=== PATIENT | male | born 1940 | race African-American/Black ===

== ENCOUNTER 2017-11-06 19:39 | Inpatient (IN) | payer OTHER ==
[~2017-11-06] VITALS: Ht 185.4 cm; Wt 63.2 kg
--- NOTE | ~2017-11-06 | EKG ---
[address] [address] ELECTROCARDIOGRAM REPORT Name: BABS RAO Room #: 355-P ADM IN M.R.#: [id number] Admission: 11/06/17 Attend Phys: Osbaldo Bhakta Discharge: Date of : 40 Report #: [id number] THIS REPORT FOR: //name// [facility] [place] [place] ED Test Date: 2017-11-06 Test Time: 20:24:20 Pat Name: BABS RAO Department: Room: Gender: M Electric Switch Repairer: Melissa CALLAHAN : 1940 Requested By: Danielle Carney Order Number: [id number] MD: Lv Andre Measurements Intervals [place] Rate: 86 P: 72 IN: 152 QRS: 78 QRSD: 90 T: 48 QT: 381 QTc: 456 Interpretive Statements Sinus rhythm Probable left atrial enlargement Minimal ST elevation, anterior leads Compared to ECG 05/13/2016 07:22:58 ST (T wave) deviation now present Electronically Signed On 11-08-2017 8:05:41 CDT by Lv Andre [email or web address] <ELECTRONICALLY SIGNED> By: Lv Andre MD 11/08/17804 23 23 Lv Andre MD /[facility]
--- NOTE | ~2017-11-06 | HC ---
[facility] [place] [address] CONSULTATION Name: BABS RAO Room #: 355-P ADM IN M.R.#: [id number] Admission: 11/06/17 Attend Phys: Osbaldo Bhakta Discharge: Date of : 40 Report #: [id number] THIS REPORT FOR: //name// CC: Osbaldo Gillette MD DATE OF SERVICE: 11/07/2017 HISTORY OF PRESENT ILLNESS: The patient is a 77-year-old male who is admitted with abdominal pain, nausea, vomiting as well as some diarrhea. Apparently, he has been having difficulty with urination and a bladder scan showed greater than 900 mL. A Caraballo catheter was placed and 2000 mL of urine was immediately drained. Reason for GI consultation is CT scan of the abdomen and pelvis. On admission yesterday showed marked distention of the rectum measuring 7.6 x 8.8 cm. Fecal impaction cannot be excluded. Again, the patient has had some diarrhea recently, but he also has a history of intermittent constipation apparently. He does have a history of colon cancer, status post right hemicolectomy. Dr. Everett, my partner did the last colonoscopy on the patient in September of 2015. The anastomosis in the right colon was well healed and widely patent. He had multiple diverticula in the sigmoid colon, but otherwise was negative. He denies any blood in his stools. His weight has been fairly stable. He is feeling better after bladder decompression. Urology has been consulted and has evaluated the patient as well. He denies any nausea or vomiting currently. No chest pain or shortness of breath. No fevers or chills currently. PAST MEDICAL HISTORY: Colon cancer, status post right hemicolectomy, history of diverticulosis, possible history of constipation, prostate mass and enlargement, bilateral hydronephrosis, history of COPD, congestive heart failure, hypertension, hypothyroidism, history of glaucoma, atrial fibrillation, previous hernia repair. ALLERGIES: ASPIRIN AND CODEINE. MEDICATIONS ON ADMISSION: ProAir, latanoprost ophthalmic drops, lisinopril, potassium chloride, Lasix, Synthroid, MiraLax p.r.n. for constipation, Advair inhaler. REVIEW OF SYSTEMS: As per HPI. FAMILY HISTORY: Positive for cancers. SOCIAL HISTORY: Denies any tobacco or alcohol use. [facility] [address] [place] [address] CONSULTATION Name: MAIRABABS Saurabh Room #: 355-P [facility] IN .R.#: [id number] Admission: 11/06/17 Attend Phys: Osbaldo Bhakta Discharge: Date of : 40 Report #: [id number] PHYSICAL EXAMINATION: VITAL SIGNS: Temperature is 98.0, pulse 73, blood pressure 106/67, respiratory rate is 18. GENERAL: He is alert and oriented x 3, in no acute distress. HEENT: Sclerae nonicteric. Oropharynx clear. NECK: Supple, without lymphadenopathy. CARDIOVASCULAR: Regular rate and rhythm. CHEST: Clear to auscultation bilaterally. ABDOMEN: Soft. He is mildly distended in the pelvis: Nontender. Positive bowel sounds. He has a Caraballo catheter in place. EXTREMITIES: No cyanosis, clubbing or edema. RECTAL: I performed a rectal exam on the patient in the room and he had an obvious fecal impaction. I digitally removed a large amount of stool today without difficulty. The patient is feeling better at this time. LABORATORY DATA: Sodium 139, potassium 4.0, chloride 103, bicarbonate 29, BUN 19, creatinine 1.6, glucose 116, AST 35, lipase 93, total bilirubin 0.9, alkaline phosphatase is 82, ALT is 37. Troponin less than 0.04. Lactic acid level is 0.8. WBC 16.3, hemoglobin 11.5, platelet count is 500. PSA is 3.8. ASSESSMENT AND PLAN: Fecal impaction, status post manual disimpaction at the bedside today. Large amount of stool was removed. The patient apparently was given mag citrate this morning. He has not had a bowel movement. We will see if he is able to have bowel movement after disimpaction. He is feeling better at this time. If no bowel movement within the next 24 hours, consider enema as well. We will continue to monitor the patient closely. Thank you for allowing me to participate in his care. <ELECTRONICALLY SIGNED> By: Maynor Valdez MD 11/08/17 1445 1425 2124 Maynor Valdez MD /nt
[~2017-11-06 19:39] MED LIST: ADVAIR 100-501 EACH INH; ADVAIR HFA115 MCG/21 INH; ALLOPURINOL 30300 M1 PO; CARAFATE 1 GM TA1 GM PO; CARVEDILOL3.125 MG PO; FUROSEMIDE 80 M80 M1 PO; K-DUR 20 MEQ T20 MEQ PO; LATANOPROST2.5 ML OPHTHALMIC; LAXATIVE PEG 3317 GM PO; LAXATIVE PEG 3510 GM PO; LEVOTHYROXIN0.025 MG PO; LISINOPRIL5 MG PO; MAXITROL EYE DRO5 ML OPHTHALMIC; METOPROLOL SUCC25 M1 PO; MINIPRIN81 MG PO; PACERONE 200 M200 M1 PO; PROAIR HFA8.5 GM INH
[2017-11-06 19:48] VITALS: BP 136/92
[2017-11-06 19:59] LABS: URINE BILIRUBIN NEGATIVE (Negative); URINE BLOOD TRACE (Negative); URINE CLARITY CLEAR; URINE COLOR YELLOW; URINE GLUCOSE-RANDOM* NEGATIVE (Negative); URINE KETONES NEGATIVE (Negative); URINE NITRITE-REFLEX NEGATIVE (Negative); URINE PROTEIN (DIPSTICK) NEGATIVE (Negative); URINE UROBILINOGEN 0.2 E.U./dl (0.2-1.0)
[2017-11-06 20:00] LABS: URINE LEUKOCYTES-REFLEX 1+ (Negative)
[2017-11-06 20:10] LABS: BACTERIA-REFLEX 1-9 Few /HPF (None Seen); CASTS None Seen /LPF (None Seen); CRYSTALS None Seen /LPF (None Seen); RENAL EPITHELIAL CELLS 0-3 Few /LPF (None Seen); SQUAMOUS None Seen /LPF (0-3); URINE RBC 3-10 Few /HPF (0-2); URINE WBC-REFLEX 6-15 Few /HPF (0-5)
[2017-11-06 20:11] LABS: WBC CLUMPS Few (None Seen)
[2017-11-06 20:17] LABS: HEMOGLOBIN 12.9 gm/dL (14.0-18.0); MCH 28.8 pg (26.0-34.0); MCV 87.4 fL (80.0-100.0); PLATELET COUNT 541 thou/uL (150-400); RBC 4.47 mil/uL (4.50-6.00); RDW 13.7 % (10.5-14.5); WBC 20.1 thou/uL (4.0-11.0)
[2017-11-06 20:24] LABS: ANION GAP 10 mmol/L (7-16); BUN 19 mg/dL (7-18); CALCIUM 9.2 mg/dL (8.5-10.1); CHLORIDE 100 mmol/L (98-107); CO2 26 mmol/L (21-32); CREATININE 1.8 mg/dL (0.7-1.3); GLUCOSE 155 mg/dL (74-106); POTASSIUM 3.9 mmol/L (3.5-5.1); SODIUM 136 mmol/L (136-145)
[2017-11-06 20:33] LABS: ALBUMIN 3.9 g/dL (3.4-5.0); LIPASE 93 U/L (73-393); SGOT 35 U/L (15-37); SGPT 37 U/L (30-65); TOTAL BILIRUBIN 0.9 mg/dL (<0.1-1.0); TOTAL PROTEIN 7.5 g/dL (6.4-8.2); TROPONIN-I < 0.04 ng/mL (<0.06)
[2017-11-06 20:49] LABS: ABSOLUTE NEUTROPHILS 19.5 thou/uL (1.4-8.2); PLATELET ESTIMATE INCREASED
[2017-11-06 22:02] VITALS: BP 141/78
[2017-11-06 22:24] VITALS: BP 139/77
[2017-11-06 22:40] VITALS: BP 146/86
[2017-11-07] MEDS ORDERED: SYNTHROID50 MCG PO (00:27)
[2017-11-07 03:45] VITALS: BP 110/64
[2017-11-07 05:26] LABS: HEMOGLOBIN 11.5 gm/dL (14.0-18.0); MCH 29.1 pg (26.0-34.0); MCV 88.3 fL (80.0-100.0); RBC 3.96 mil/uL (4.50-6.00); RDW 13.8 % (10.5-14.5); WBC 16.3 thou/uL (4.0-11.0)
[2017-11-07 05:42] LABS: CALCIUM 8.8 mg/dL (8.5-10.1); CREATININE 1.6 mg/dL (0.7-1.3)
[2017-11-07 07:33] VITALS: BP 114/69
[2017-11-07 11:30] VITALS: BP 106/67
[2017-11-07 13:10] LABS: GLYCOHEMOGLOBIN (HGB A1C) 5.8 % (4.8-5.6)
[2017-11-07 19:25] VITALS: BP 103/65
[2017-11-08 03:57] VITALS: BP 113/66
[2017-11-08 06:07] LABS: ALBUMIN 2.6 g/dL (3.4-5.0); CALCIUM 8.9 mg/dL (8.5-10.1); CREATININE 0.8 mg/dL (0.7-1.3); PHOSPHORUS 2.9 mg/dL (2.5-4.9)
[2017-11-08 08:21] VITALS: BP 121/67
[2017-11-08 11:22] VITALS: BP 124/74
[2017-11-08] MEDS ORDERED: CARDIZEM CD120 MG PO (13:11)
[2017-11-08] MEDS ORDERED: PROTONIX40 M1 PO (13:12)
[2017-11-08] MEDS ORDERED: LOPRESSOR25 PO (13:13)
[2017-11-08] MEDS ORDERED: ALLOPURINOL 10100 M1 PO (13:13)
[2017-11-08] MEDS ORDERED: FLOMAX0.4 MG PO (13:14)
[2017-11-08] MEDS ORDERED: BREO ELLIPTA 21 EACH INH (13:19)
[2017-11-08 15:13] VITALS: BP 124/74
[2017-11-08 15:34] VITALS: BP 118/73
[2017-11-08 19:38] VITALS: BP 119/76
[2017-11-09 03:30] VITALS: BP 125/74
[2017-11-09 08:25] VITALS: BP 135/75
[2017-11-09] MEDS ORDERED: LEVAQUIN 500 M500 M2 PO (09:22)
[2017-11-09 10:59] VITALS: BP 124/74
== END 2017-11-09 13:40 | disposition home health service (06) | DRG 871 ==
LOC: ER 19:39 → EROBS 21:21 → 3W 21:21
PROVIDERS: Hospitalist; Nurse Practitioner Acute Care; Physician Assistant
DX: A41.9 Sepsis, unspecified organism (principal); E43 Unspecified severe protein-calorie malnutrition; N17.9 Acute kidney failure, unspecified; N39.0 Urinary tract infection, site not specified; N13.30 Unspecified hydronephrosis; K56.41 Fecal impaction; E03.9 Hypothyroidism, unspecified; H40.9 Unspecified glaucoma; J44.9 Chronic obstructive pulmonary disease, unspecified; N42.9 Disorder of prostate, unspecified; K57.90 Diverticulosis of intestine, part unspecified, without perforation or abscess without bleeding; I50.9 Heart failure, unspecified; G62.9 Polyneuropathy, unspecified; R33.9 Retention of urine, unspecified; I48.2 Chronic atrial fibrillation; I11.0 Hypertensive heart disease with heart failure; R73.9 Hyperglycemia, unspecified; Z79.82 Long term (current) use of aspirin; Z85.038 Personal history of other malignant neoplasm of large intestine; Z90.49 Acquired absence of other specified parts of digestive tract; Z82.49 Family history of ischemic heart disease and other diseases of the circulatory system; Z98.49 Cataract extraction status, unspecified eye; Z88.6 Allergy status to analgesic agent; Z79.899 Other long term (current) drug therapy
CPT/HCPCS: 10879

== ENCOUNTER 2017-11-15 11:26 | Emergency (ER) | payer OTHER ==
[~2017-11-15] VITALS: Ht 175.3 cm; Wt 72.6 kg
[~2017-11-15 11:26] MED LIST changes: +ALLOPURINOL 10100 M1 PO; +BREO ELLIPTA 21 EACH INH; +CARDIZEM CD120 MG PO; +FLOMAX0.4 MG PO; +LEVAQUIN 500 M500 M2 PO; +LOPRESSOR25 PO; +PROTONIX40 M1 PO; +SYNTHROID50 MCG PO
[2017-11-15 12:19] LABS: URINE BILIRUBIN NEGATIVE (Negative); URINE BLOOD TRACE (Negative); URINE CLARITY CLEAR; URINE COLOR YELLOW; URINE GLUCOSE-RANDOM* NEGATIVE (Negative); URINE KETONES NEGATIVE (Negative); URINE LEUKOCYTES-REFLEX NEGATIVE (Negative); URINE NITRITE-REFLEX NEGATIVE (Negative); URINE PROTEIN (DIPSTICK) NEGATIVE (Negative); URINE UROBILINOGEN 0.2 E.U./dl (0.2-1.0)
[2017-11-15 14:03] LABS: ABSOLUTE NEUTROPHILS 3.5 thou/uL (1.4-8.2); HEMATOCRIT 33.7 % (42.0-52.0); HEMOGLOBIN 11.3 gm/dL (14.0-18.0); LYMPHOCYTES 23.2 % (24.0-44.0); MCH 29.5 pg (26.0-34.0); MCHC 33.4 g/dL (28.0-37.0); MCV 88.1 fL (80.0-100.0); MONOCYTES 9.2 % (1.0-8.0); PLATELET COUNT 375 thou/uL (150-400); POLYS 65.6 % (36.0-66.0); RBC 3.82 mil/uL (4.50-6.00); WBC 5.4 thou/uL (4.0-11.0)
[2017-11-15 14:11] LABS: CALCIUM 8.8 mg/dL (8.5-10.1); CREATININE 0.8 mg/dL (0.7-1.3); POTASSIUM 3.8 mmol/L (3.5-5.1)
== END 2017-11-15 15:17 | disposition home or self-care (01) ==
LOC: ER 11:26
PROVIDERS: Emergency Medicine
DX: Z96.0 Presence of urogenital implants (principal); Z46.6 Encounter for fitting and adjustment of urinary device; R35.0 Frequency of micturition; I10 Essential (primary) hypertension; I48.91 Unspecified atrial fibrillation; J44.9 Chronic obstructive pulmonary disease, unspecified; E03.9 Hypothyroidism, unspecified; G62.9 Polyneuropathy, unspecified; Z85.038 Personal history of other malignant neoplasm of large intestine; Z90.89 Acquired absence of other organs; Z88.5 Allergy status to narcotic agent

== ENCOUNTER 2017-11-17 18:59 | Emergency (ER) | payer OTHER ==
[~2017-11-17] VITALS: Ht 185.4 cm; Wt 64.0 kg
[2017-11-17 21:46] LABS: URINE BILIRUBIN NEGATIVE (Negative); URINE BLOOD 3+ (Negative); URINE CLARITY SL CLOUDY; URINE COLOR YELLOW; URINE GLUCOSE-RANDOM* NEGATIVE (Negative); URINE KETONES NEGATIVE (Negative); URINE LEUKOCYTES-REFLEX NEGATIVE (Negative); URINE PROTEIN (DIPSTICK) 1+ (Negative); URINE SPECIFIC GRAVITY >= 1.030 (1.005-1.035); URINE UROBILINOGEN 0.2 E.U./dl (0.2-1.0)
[2017-11-17 21:47] LABS: URINE NITRITE-REFLEX POSITIVE (Negative)
[2017-11-17] MEDS ORDERED: FLOMAX0.4 MG PO (21:52)
[2017-11-17 21:54] LABS: SQUAMOUS 4-10 Moderate /LPF (0-3)
[2017-11-17 21:55] LABS: CASTS None Seen /LPF (None Seen); CRYSTALS None Seen /LPF (None Seen); URINE RBC >20 Many /HPF (0-2)
== END 2017-11-17 22:25 | disposition home or self-care (01) ==
LOC: ER 18:59
PROVIDERS: Emergency Medicine
DX: N40.1 Benign prostatic hyperplasia with lower urinary tract symptoms (principal); R33.8 Other retention of urine; K59.00 Constipation, unspecified; I10 Essential (primary) hypertension; E03.9 Hypothyroidism, unspecified; I48.91 Unspecified atrial fibrillation; J44.9 Chronic obstructive pulmonary disease, unspecified; Z88.5 Allergy status to narcotic agent

== ENCOUNTER 2018-03-20 09:50 | Emergency (ER) | payer OTHER ==
[~2018-03-20] VITALS: Ht 185.4 cm; Wt 61.7 kg
--- NOTE | ~2018-03-20 | EKG ---
[address] [address] ELECTROCARDIOGRAM REPORT Name: BABS RAO Room #: [facility]#: [id number] Admission: 03/20/18 Attend Phys: Discharge: 03/20/18 Date of : 40 Report #: [id number] THIS REPORT FOR: //name// [facility] ED Test Date: 2018-03-20 Test Time: 10:47:57 Pat Name: BABS YORKBLANC Department: Room: Gender: M Sterile Process Coordinator: LESLIE : 1940 Requested By: Jolie Calvillo Order Number: [id number] MD: Lv Andre Measurements Intervals [place] Rate: 63 P: 74 SC: 149 QRS: 81 QRSD: 95 T: 52 QT: 462 QTc: 474 Interpretive Statements Sinus rhythm Atrial premature complexes Borderline right axis deviation RSR' in V1 or V2, probably normal variant Borderline ST elevation, anterolateral leads similar to previous ekg Compared to ECG 02/10/2018 07:06:55 Electronically Signed On 03-20-2018 16:59:59 CDT by Lv Andre [email or web address] <ELECTRONICALLY SIGNED> By: Lv Andre MD 03/20/18 1659 1047 1047 Lv Andre MD /EPI
[~2018-03-20 09:50] MED LIST changes: +ALPHAGAN P5 ML OPHTHALMIC; +KEFLEX500 M1 PO
[2018-03-20] MEDS ORDERED: VITAMIN D1000 UNI1 PO (10:19)
[2018-03-20] MEDS ORDERED: ALLOPURINOL 10100 M1 PO (10:19)
[2018-03-20] MEDS ORDERED: BEANO300 UNIT PO (10:19)
[2018-03-20] MEDS ORDERED: CEFDINIR300 MG PO (10:19)
[2018-03-20] MEDS ORDERED: DILTIAZEM 24HR120 M2 PO (10:20)
[2018-03-20] MEDS ORDERED: VITAMIN B-12500 MCG PO (10:20)
[2018-03-20] MEDS ORDERED: ONDANSETRON HCL4 M2 PO (10:21)
[2018-03-20] MEDS ORDERED: FLOMAX0.4 MG PO (10:21)
[2018-03-20 10:56] LABS: ABSOLUTE NEUTROPHILS 5.2 thou/uL (1.4-8.2); BASOPHILS 1.1 % (0.0-2.0); EOSINOPHILS 2.7 % (0.0-3.0); HEMATOCRIT 37.5 % (42.0-52.0); HEMOGLOBIN 12.5 gm/dL (14.0-18.0); MCH 28.9 pg (26.0-34.0); MCHC 33.4 g/dL (28.0-37.0); MCV 86.6 fL (80.0-100.0); PLATELET COUNT 202 thou/uL (150-400); POLYS 75.2 % (36.0-66.0); RBC 4.34 mil/uL (4.50-6.00); RDW 14.1 % (10.5-14.5)
[2018-03-20 11:04] LABS: CALCIUM 9.5 mg/dL (8.5-10.1); CREATININE 1.2 mg/dL (0.7-1.3); POTASSIUM 3.8 mmol/L (3.5-5.1)
[2018-03-20 11:06] LABS: URINE BILIRUBIN NEGATIVE (Negative); URINE BLOOD 3+ (Negative); URINE CLARITY CLOUDY; URINE COLOR YELLOW; URINE GLUCOSE-RANDOM* NEGATIVE (Negative); URINE KETONES NEGATIVE (Negative); URINE LEUKOCYTES-REFLEX 1+ (Negative); URINE NITRITE-REFLEX NEGATIVE (Negative); URINE PROTEIN (DIPSTICK) 1+ (Negative)
[2018-03-20 11:13] LABS: CASTS None Seen /LPF (None Seen); SQUAMOUS 0-3 Few /LPF (0-3); URIC ACID CRYSTALS >10 Many /LPF (None Seen); URINE WBC-REFLEX 6-15 Few /HPF (0-5)
[2018-03-20] MEDS ORDERED: BACTRIM DS TAB1 EACH PO (12:15)
== END 2018-03-20 13:03 | disposition home or self-care (01) ==
LOC: ER 09:50
PROVIDERS: Emergency Medicine
DX: N39.0 Urinary tract infection, site not specified (principal); I10 Essential (primary) hypertension; E03.9 Hypothyroidism, unspecified; I48.91 Unspecified atrial fibrillation; J44.9 Chronic obstructive pulmonary disease, unspecified; G62.9 Polyneuropathy, unspecified; Z87.19 Personal history of other diseases of the digestive system; W18.30XA Fall on same level, unspecified, initial encounter; Y93.89 Activity, other specified; Y92.89 Other specified places as the place of occurrence of the external cause; Y99.8 Other external cause status

== ENCOUNTER 2018-08-15 16:52 | Inpatient (IN) | payer OTHER ==
[~2018-08-15] VITALS: Ht 185.4 cm; Wt 61.7 kg
[~2018-08-15 16:52] MED LIST changes: +BACTRIM DS TAB1 EACH PO; +BEANO300 UNIT PO; +CEFDINIR300 MG PO; +DILTIAZEM 24HR120 M2 PO; +ONDANSETRON HCL4 M2 PO; +VITAMIN B-12500 MCG PO; +VITAMIN D1000 UNI1 PO
[2018-08-15 16:53] VITALS: BP 98/43
--- NOTE | 2018-08-15 17:39 | EKG ---
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 Up Operator Jig: LESLIE : 1940 Requested By: Francine Steinberg Order Number: [id number] MD: Miguel Ángel Elena Measurements Intervals [place] Rate: 77 P: 72 CT: 146 QRS: 83 QRSD: 86 T: 55 QT: 384 QTc: 435 Interpretive Statements Sinus rhythm Atrial premature complexes left atrial enlargement rightward axis non specific st/t wave changes Compared to ECG 03/20/2018 10:47:57 no significant changes Electronically Signed On 08-15-2018 17:39:19 CDT by Miguel Ángel Elena [email or web address] ��������������������������������������������� <ELECTRONICALLY SIGNED> ���������������������������������������� By: Miguel Ángel Elena MD ��������������������������������������������� 08/15/18 1739 08 08 Miguel Ángel Elena MD /PMA
[2018-08-15 17:53] LABS: ABSOLUTE NEUTROPHILS 4.4 thou/uL (1.4-8.2); BASOPHILS 0.6 % (0.0-2.0); EOSINOPHILS 0.3 % (0.0-3.0); HEMATOCRIT 36.6 % (42.0-52.0); HEMOGLOBIN 12.3 gm/dL (14.0-18.0); LYMPHOCYTES 13.9 % (24.0-44.0); MCHC 33.7 g/dL (28.0-37.0); MCV 85.9 fL (80.0-100.0); MONOCYTES 7.9 % (1.0-8.0); PLATELET COUNT 251 thou/uL (150-400); POLYS 77.3 % (36.0-66.0); RBC 4.26 mil/uL (4.50-6.00); RDW 13.2 % (10.5-14.5); WBC 5.7 thou/uL (4.0-11.0)
[2018-08-15 18:01] LABS: ANION GAP 5 mmol/L (7-16); BUN 21 mg/dL (7-18); CHLORIDE 106 mmol/L (98-107); CO2 31 mmol/L (21-32); GLUCOSE 102 mg/dL (74-106); SODIUM 142 mmol/L (136-145)
[2018-08-15 18:10] LABS: ALBUMIN 3.7 g/dL (3.4-5.0); SGOT 28 U/L (15-37); SGPT 37 U/L (30-65); TOTAL BILIRUBIN 0.6 mg/dL (<0.1-1.0); TOTAL PROTEIN 6.3 g/dL (6.4-8.2); TROPONIN-I <0.06 ng/mL (<0.06)
[2018-08-15 18:58] LABS: URINE BILIRUBIN NEGATIVE (Negative); URINE BLOOD NEGATIVE (Negative); URINE CLARITY CLEAR; URINE COLOR YELLOW; URINE GLUCOSE-RANDOM* NEGATIVE (Negative); URINE KETONES TRACE (Negative); URINE LEUKOCYTES-REFLEX NEGATIVE (Negative); URINE PROTEIN (DIPSTICK) NEGATIVE (Negative); URINE SPECIFIC GRAVITY 1.015 (1.005-1.035)
[2018-08-15 18:59] LABS: URINE NITRITE-REFLEX POSITIVE (Negative)
[2018-08-15 19:07] LABS: BACTERIA-REFLEX >30 Many /HPF (None Seen); CASTS None Seen /LPF (None Seen); CRYSTALS None Seen /LPF (None Seen); SQUAMOUS 0-3 Few /LPF (0-3); URINE RBC 0-2 Rare /HPF (0-2); URINE WBC-REFLEX 6-15 Few /HPF (0-5)
[2018-08-15 20:12] VITALS: BP 98/43
[2018-08-15 20:56] VITALS: BP 119/64
[2018-08-15 21:09] VITALS: BP 128/73
[2018-08-16 00:14] VITALS: BP 148/74
--- NOTE | 2018-08-16 01:39 | NUR ---
Pt came up to unit at 1900. Pt is pleasant but forgetful. Lives at home with spouse. No c/o pain. Pt has UTI. Wears leg braces and uses walker at home. Admission assessment, education, and hx completed. Fall precautions in place. Will continue to monitor.
[2018-08-16 04:39] VITALS: BP 130/88
[2018-08-16 07:15] VITALS: BP 119/76
--- NOTE | 2018-08-16 10:03 | NUR ---
Assess due to low BMI of 18. Admitted due to confusion and forgetfullness. Pt wt hx reviewed in [facility] and pt has always been very thin with wts averaging 137-140 b. Started on diet this am, usually eats well when in hospital but can order Ensure supplement to promote nutrition adequacy. On vit B12 and vitamin D supplementation. Low nutrition risk
--- NOTE | 2018-08-16 11:40 | NUR ---
ASSESSMENT-PT LIVES AT HOME WITH LASHAUN WHO IS 3 YRS YOUNGER THAN HE AND IN GOOD HEALTH AND DRIVES. PT HAS A SON IN [place] AND A DTR IN [place]. PT USES A 4 PRONG CANE AND BRACES BILATERALLY ON BOTH LEGS TO GET AROUND OR A ROLLER WALKER. PT SAYS HE PLANS TO STOP DRIVING WITH HIS NEXT BIRTHDAY. PT SAYS HE HAS BAD KNEES AND BAD ANKLES AND HAS BEEN FALLING. HE SAYS THEY SHARE THE HOUSEHOLD THINGS. PT TELLS ME HE IS THE LAST OF 11 CHILDREN IN HIS FAMILY. PT HAS HAD CHCS IN THE PAST. FOLLOWING TO ASSIST WITH DC PLANNING. AWITING THERAPY REC.
[2018-08-16 12:15] LABS: TSH 4.127 uIU/mL (0.358-3.740)
[2018-08-16 16:08] VITALS: BP 107/61
--- NOTE | 2018-08-16 17:04 | NUR ---
S/W PT'S AND SHE TELLS ME PT IS GETTING TOUGH TO HANDLE AT HOME. SHE SAYS HE EASILY GETS ANGRY WITH HER. 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 SHE SAYS HE WENT TO THE BANK AND [employer]OLA OUT $3000 IN [place] AND JUST HAD IT IN THE BEDROOM. SHE SAYS HE HAS POOR JUDGEMENT AND SHE THINKS HE HAS DEMENTIA AND WOULD LIKE HIM EVALUATED. SHE SAYS HE IS NORMALLY ABLE TO WALK OK AND DOES HIS OWN BATHING AND DRESSING. SHE SAYS HE HAS BEEN TELLING HER FOR OVER A YEAR THAT HE IS GOING TO MOVE. SHE SAYS THAT HE MOVED A LOT OF THINGS UP FROM THE BASEMENT TO THE GARAGE BY HIMSELF. SHE SAYS SHE DOES NOT ALLOW HIM TO DRIVE ANYMORE. HE BROKE ONE CAR GOVEA, LOST ANOTHER AND LOST THE OTHER SET OF KEYS TO THE OTHER CAR. SHE SAYS EARLY WEDNESDAY HE WOKE UP AROUND 3AM & TOLD HER SOMEONE WAS IN THE CAR THAT WAS PARKED IN THE DRIVEWAY. SHE TRIED TO CONVINCE HIM THAT HE WAS ONLY IMAGINING THIS AND TO COME BACK TO BED. SHE SAID SHORTLY AFTER THIS SHE HEARD LIGHTS AND SIRENS. PT HAD CALLED THE POLICE. POLICE CHECKED THINGS OUT AND DID NOT FIND ANYTHING. NOTIFIED DR SALINAS OF THE ABOVE AND 'S REQUEST TO HAVE PT EVALUATED BY PSYCH.
[2018-08-16 19:40] VITALS: BP 105/63
--- NOTE | 2018-08-16 19:54 | NUR ---
PATIENT ARRIVE TO [facility] AT AT 1902 FROM 4 EAST 420 TO ROOM 220.PATIENT WAS ORIENTED TO ROOM.VITALS WERE TAKEN.CALL LIGHT, PHONE, AND PERSONAL BELONGINGS ARE WITHIN REACH.
--- NOTE | 2018-08-17 05:30 | NUR ---
Pt A/OX3 with confusion noted on and off through shift,also impulsive and trying to get up several times to get dressed from his suitcase in the middle of the night.Pt redirected a few times and fall precautions implemented. Pt with unsteady gait, wears bilateral braces and uses a quad cane to ambulate. Urinal provided for pt and placed within reach, IV fluids infusing and PO intake encouraged and pt doing well. Pt denies dysuria or any discomfort when voiding.No c/o pain on assessment.VSS.Resting quietly in bed at this time with no distress noted,bed alarm on. Will continue to monitor pt.
[2018-08-17 08:35] VITALS: BP 115/83
--- NOTE | 2018-08-17 14:26 | NUR ---
SW reviewed chart and spoke with nursing and attending physician. Pt was [facility] from . Awaiting psych consult at this time. PT/OT working with pt and recommending services. MIKAYLA is following to assist as needed with discharge planning.
--- NOTE | 2018-08-17 16:24 | NUR ---
ASSUMED CARE OF PATIENT AT 0715, PATIENT ALERT AND ORIENTED X 2-3, PATIENT HAS CONFUSION, BUT PLEASANT. PATIENT C/O PAIN WITH LEFT HIP AREA, TYLENOL 650 MG GIVEN, WITH PARTIAL RELIEF 08/14. PATIENT HAS RIGHT FOREARM IV WITH NS AT 80CC/HR. PSYCH CONSULT IN FOR DR SÁNCHEZ. FALL PRECAUTIONS IN PLACE/BED ALARM IN PLACE. PATIENT CAN BE IMPLUSIVE AT TIMES. PATIENT VOIDS PER URINAL. PATIENT UP WITH ASSIST X 1 WITH CANE. MRI OF HEAD W/O CONTRAST DONE THIS AFTERNOON. WILL CONTINUE TO MONITOR.
--- NOTE | 2018-08-17 20:07 | NUR ---
Pt up trying to get home,pacing around in the hallway in pts rooms,not easily directed and fighting with the staff.Security contacted and in the unit persuading the pt to cooperate. Order obtained from MIKHAIL Acuña for Haldol 1MG POX1 and administered,awaiting medication to be effective. Pt trying several times to kick at the security personal. Fall precautions on,braces on vlad legs for gait stability. Will continue to monitor pt.
[2018-08-17 20:20] VITALS: BP 116/67
[2018-08-18 07:30] VITALS: BP 115/70
[2018-08-18 09:37] VITALS: BP 125/74
--- NOTE | 2018-08-18 13:50 | NUR ---
SW reviewed chart and spoke with nursing and attending physician. Psych did evaluate pt last evening. Recommendation to start pt on aricept. Pt became agitated and combative. Security was called this morning. SW met with pt and spouse at bedside to discuss discharge plan. Lengthy discussion with pt's regarding need for additional help at home or possible superintendent container terminal placement. SW provided pt's with in-network SNF list for review. SW explained coveraged for SNF and also services and private duty care. Pt's would like to speak with psych to discuss pt's condition. SW notified psych. SW is following to assist as needed with discharge planning.
[2018-08-18] MEDS ORDERED: MACROBID 100 M100 M1 PO (14:48)
== END 2018-08-18 17:07 | DRG 689 ==
LOC: ER 16:52 → EROBS 19:21 → 4E 19:21 → SICU 19:21 → 4E 20:48 → SICU 08-16 19:08 → ENTRNSPT 08-18 16:24 → SICU 08-18 17:07
PROVIDERS: Internal Medicine Geriatric Medicine; Physician Assistant; ADMIT Hospitalist
DX: N39.0 Urinary tract infection, site not specified (principal); G92 Toxic encephalopathy; E43 Unspecified severe protein-calorie malnutrition; G62.9 Polyneuropathy, unspecified; I10 Essential (primary) hypertension; E03.9 Hypothyroidism, unspecified; H40.9 Unspecified glaucoma; J44.9 Chronic obstructive pulmonary disease, unspecified; R41.0 Disorientation, unspecified; F03.90 Unspecified dementia, unspecified severity, without behavioral disturbance, psychotic disturbance, mood disturbance, and anxiety; I48.2 Chronic atrial fibrillation; M62.84 Sarcopenia; N40.0 Benign prostatic hyperplasia without lower urinary tract symptoms; R29.6 Repeated falls; K21.9 Gastro-esophageal reflux disease without esophagitis; G31.9 Degenerative disease of nervous system, unspecified; Z85.038 Personal history of other malignant neoplasm of large intestine; Z79.899 Other long term (current) drug therapy; Z90.49 Acquired absence of other specified parts of digestive tract; Z98.42 Cataract extraction status, left eye; Z98.41 Cataract extraction status, right eye; Z82.49 Family history of ischemic heart disease and other diseases of the circulatory system; Z79.82 Long term (current) use of aspirin
CPT/HCPCS: 10084; 15002

== ENCOUNTER 2018-08-18 14:53 | Inpatient (IN) | payer OTHER ==
[~2018-08-18] VITALS: Ht 185.4 cm; Wt 62.1 kg
[~2018-08-18 14:53] MED LIST changes: +MACROBID 100 M100 M1 PO
--- NOTE | 2018-08-18 18:51 | NUR ---
1645: Admitted under the care of Dr. Schreiber to room 520-B from [facility], arrived via w/c, accomp by [facility] transporter. VS=97.3-62-18, 95/51, 99% O2 SAT on RA, skin w/d, color WNL. Speech clear, cooperative with admission assessment and questionare. NKA, Full Code, Regular Diet. Initial assessment completed. Initial admit and consent to tx signed. Patient to dining room for evening meal, appetite good, consumed 100% of meal.
[2018-08-18 20:41] VITALS: BP 146/77
--- NOTE | 2018-08-18 23:47 | NUR ---
ASSUMED CARE @ 19:15. IN THE DAY ROOM WATCHING BASKETBALL ON TV. GIVEN 2100 MEDS WHOLE WITH WATER. EYEDROP INSTILLED IN R EYE. TAKEN TO BE AFTER BBALL VIA W/C X2 ASSIST WITH GAIT BELT. TOOK OFF LEG BRACES HIMSELF. CHANGED ORDER FROM 100MG ALLOPURINAL TID TO 300MG DAILY @ 0900. WILL CONTINUE TO MONITOR.
--- NOTE | 2018-08-19 07:15 | NUR ---
22GU PEREPHERAL IV D/C, TIP INTACT WRAPPED WITH COBAN. SLEPT 5 HOURS
--- NOTE | 2018-08-19 09:04 | NUR ---
Nutrition: assess d/t low BMI. Pt originally admitted on 08/15 for AMS; moved to [facility]. Pt is underweight per BMI of 18.0, however wt has been stable for ~2 years. Per nursing, appetite is good, w/ 100% intake of yesterday's dinner. Pt previously liked Ensure, can reorder if intake declines. Otherwise, consider low risk at this time.
[2018-08-19 14:52] VITALS: BP 112/70
--- NOTE | 2018-08-19 19:14 | H ---
[facility] [place] [address] HISTORY AND PHYSICAL Name: BABS RAO Room #: 520B-B ADM IN M.R.#: [id number] Admission: 08/18/18 ������������������ Attend Phys: Jose Schreiber DO Discharge: ������������������ Date of : 40 Report #: [id number] THIS REPORT FOR: //name// CC: Jose Schreiber Rodney Gillette DATE OF SERVICE: 08/18/2018 ATTENDING PHYSICIAN: Jose Schreiber DO. MUMPS DEVELOPER: Jose Justice MD. REASON FOR ADMISSION: Transferred from the senior suite unit here at [facility] for increased confusion, combativeness, agitation, especially at night requiring physical restraints. SOURCES OF INFORMATION: Chart review and interview with patient, some collateral from his [place] and discussion with Dr. Justice and Dr. Eduardo. HISTORY OF PRESENT ILLNESS: This is a 78-year-old black male who presented on 08/15/2018 to the Emergency Room at [facility] with altered mental status. The complaint on that day was he had been expressing increased confusion, this has worsened over the past year and worsened even more so in the several days preceding admission, complaining of dizziness. She reported he acts as if he is seeing or hearing things that are not there. Few nights before admission, the patient woke at 3:30 in the morning and complained that someone was outside in his car and he then called the police. When the police arrived, they told him that everything was fine and no one was in the car and he called the police second time with same complaint. The patient was also recently struggling to remember things, for example people's names. Within the last year, he is complaining numerous times that he is "moving away." He continues to be packing a couple of his items as if he is moving. His was told by senior services to bring him to the Emergency Room. PAST MEDICAL HISTORY: Significant for hypertension, atrial fibrillation, COPD, hypothyroidism, colon cancer. No recent falls, injuries or weaknesses. PCP is Dr. Gillette. Medical problems from chart include history of acute kidney injury, history of chest pain, BPH, prostate mass, peripheral neuropathy, numerous UTIs, shortness of breath. PAST SURGICAL HISTORY: Includes cataract, hernia repair, neck surgery, back surgery, colon cancer. ALLERGIES: No known allergies. IMAGING: CT scan of the head was negative for acute process. [facility] [address] [place] [address] HISTORY AND PHYSICAL Name: BABS RAO Room #: 520B-B ADM IN M.R.#: [id number] Admission: 08/18/18 ������������������ Attend Phys: Jose Schreiber, Discharge: ������������������ Date of : 40 Report #: [id number] LABORATORY DATA: Most recent laboratories, hematology done 08/15/2018, white count 5.7, H and H 12.3 and 36.6, platelets 251. He did have a slight neutrophilia by percentage at 77.3. Coagulation was not done this admission. Electrolytes this admission, sodium 142, potassium 4.0, chloride 106, bicarbonate 31, anion gap 5, BUN 21, creatinine 1.0, estimated GFR 88, glucose 102, lactic acid 1.2, calcium 9.0, magnesium 1.9. Urinalysis this admission was suggestive of urinary tract infection. Urine culture grew coagulase-negative staph species. Sensitivities were done. He is currently on Macrobid, which urine culture was sensitive for. ADDITIONAL HISTORY: Born and raised in [place], [place] forced him not to graduate from high school. FAMILY HISTORY: All 10 siblings have of cancer. Mom had dilated cardiomyopathy. MEDICATIONS: At home were numerous and detailed in the hospitalists 08/15/2018 evaluation. CURRENT MEDICATIONS IN THE HOSPITAL: Tamsulosin 0.4 mg p.o. daily for BPH, metoprolol tartrate 25 mg p.o. daily, diltiazem hydrochloride 120 mg p.o. daily, cyanocobalamin 1000 mcg p.o. daily, aspirin 81 mg p.o. daily, allopurinol 300 mg p.o. daily, pantoprazole 40 mg p.o. daily, levothyroxine 50 mcg p.o. daily, nitrofurantoin 100 mcg b.i.d. I believe for 5 more days, vitamin D 1000 units p.o. b.i.d., MiraLax daily p.o., brimonidine tartrate for his eyes, I believe he was on a second ophthalmic medication, which I think is just marked non-formulary. REVIEW OF SYSTEMS: CONSTITUTIONAL: From my own interview and hospitalists, denies chills, diaphoresis, malaise. HEENT: Symptoms reported. RESPIRATORY: Denies. CARDIOVASCULAR: Denies. GASTROINTESTINAL: Denies. MUSCULOSKELETAL: Denies. NEUROLOGICAL: Some weakness PHYSICAL EXAMINATION: VITAL SIGNS: This admission pulse 65, BP 112/70, he is afebrile. MUSCULOSKELETAL: He ambulates with a quad cane. MENTAL STATUS EXAMINATION: This is a well-developed, tall, thin black male apparently stated age. Attention limited, concentration limited. Speech is normal rate. Thought process is linear and goal directed. Thought content some [address] [address] HISTORY AND PHYSICAL Name: BABS RAO Room #: 520B-B ADM IN M.R.#: [id number] Admission: 08/18/18 ������������������ Attend Phys: Jose Schreiber, Discharge: ������������������ Date of : 40 Report #: [id number] relative poverty of thought. No psychomotor agitation, no psychomotor retardation. Denied auditory, visual or tactile hallucinations. Denied suicidal intent or plan. Denied hopelessness or helplessness. Denied homicidal intent or plan. Should saw the patient did have insight. He had Alzheimer disease. [facility] Mental Status Examination was performed. The patient scored a 4/30 with gross deficits throughout. Effort was fair. Insight limited. Judgment limited. Fund of knowledge well below average. FORMULATION: A 78-year-old black male, , presenting with altered mental status, found to have urinary tract infection; however, his cognitive deficits would appear to be much longer standing. DIAGNOSES AT THIS TIME: Major neurocognitive disorder likely secondary to Alzheimer's disease. He has delirium, which is resolved due to the urinary tract infection. PLAN: Evaluate, stabilize and obtain collateral. I think at this point it would be reasonable to hold off on further medications, though a couple nights ago, he was very agitated, there were a number of reasons for that, so given the risks with antipsychotics and such, I would like to see if he can go a couple of nights in a supportive environment without needing extra medication. Another issue which is paramount is whether the can care for him in the home or he would require placement. I would like our social work professor to schedule family meeting early next week regarding this. I have left a voicemail for his , Bothery to gain additional collateral. STRENGTH: He has a supportive family. WEAKNESSES: Advancing age, neurodegenerative disorder and number of health problems. The time spent on interview, review of records, coordination of care was approximately 60 minutes. ��������������������������������������������� <ELECTRONICALLY SIGNED> ���������������������������������������� By: Jose Schreiber DO ��������������������������������������������� 08/19/18 1914 1412 1531 Jose Schreiber, /nt
[2018-08-19 19:23] VITALS: BP 146/94
--- NOTE | 2018-08-20 03:20 | NUR ---
PT OUT WITH PEERS EARLY IN SHIFT. WATCHING TV BUT ON THE EDGE OF THE GROUP. ALLOWED STAFF TO TAKE VS AND ASSESS. CONFUSED. REFUSED TO TAKE HS MEDS. PACING FLOOR REMAINDER OF THE EVENING. REFUSING TO GO TO BED AND OR REMAIN IN HIS ROOM. WANDERING UNIT, CHECKING DOORS AND WINDOWS. CONTINUALLY STATES THAT HE "HAS TO GET OUT". PT IN DAYROOM AT 0100,TRYING TO TAKE CABINET DOOR OFF HINGES. CONFRONTED BY STAFF AND BECAME PHYSICALLY THREATENING. GRABBED THIS STAFF BY FRONT OF SHIRT AND WOULD NOT RELEASE. SECURITY NOTIFIED, AND RESPONDED PROMPTLY. PT EXTRICATED AND SETTLED DOWN. FINALLY WENT TO BED AT 0200, AND REMAINED IN HIS ROOM OF THIS NOTE. MAINTENANCE NOTIFIED AND REPAIRED CABINET DOOR.
--- NOTE | 2018-08-20 07:30 | NUR ---
CLIENT UP WALKING AROUND IN UNIT. TRYING TO GET DOORS OPEN TO WEST DOOR. ALSO HE SHUTS HIS DOOR TO ROOM AND UNABLE TO GET BACK INTO ROOM. UP WITH CANE AND BRACES TO LEGS BILATERAL. NEEDS TO HAVE 1:1 IN BEGINNING AM.
--- NOTE | 2018-08-20 08:40 | NUR ---
LET THE NURSE TAKE VS. WOULD NOT LET THE ACTIVITY DIRECTOR. TOOK MEDICATIONS WITHOUT ISSUE.
[2018-08-20 09:00] VITALS: BP 131/76
[2018-08-20 11:30] VITALS: BP 131/76
--- NOTE | 2018-08-20 14:25 | NUR ---
COOROPERATING WITH GROUP AND STAFF. NOT TRYING TO LEAVE UNIT.
--- NOTE | 2018-08-20 16:45 | NUR ---
CLIENT WANTING TO KNOW ABOUT TO GO TO WORK AND CHECKING ON WINDOWS. GOT AN ORDER FOR ANTI-ANXIETY MED.
--- NOTE | 2018-08-20 17:06 | NUR ---
GOT ORDER FOR SEROQUEL 25MG PO FOR ANXIETY. REFUSED TO TAKE THE MEDICATION EVEN WITH ENCOURAGEMENT FROM NURSING AND STAFF.
--- NOTE | 2018-08-20 18:07 | NUR ---
SW had to redirect pt from enetering other pt room. Pt had an encounter with another pt due to the pt trying to rest. Pt was very agitated stated he was trying to leave out of here, and go home. Pt has been pacing back and forward on the unit trying to find away off the unit. MIKAYLA requested that the SEAM STEAMER Dereje be called to get a PRN. Pt was given the PRN but refused to take the medication. Pt spit the medicine out on the floor. SW requested that pt an PRN IM order in case there is agitation or aggression shown tonight. SW requested that MANAGER HYDRAULIC taxation inspector to observe pt avoid from enetering pt room.
[2018-08-20 19:36] VITALS: BP 110/63
[2018-08-21 00:25] VITALS: BP 110/63
--- NOTE | 2018-08-21 02:51 | NUR ---
PT OUT WALKING THE HALLS AND CHECKING ALL THE DOORS LOOKING FOR A WAY OUT. WHEN ADVISED SEVERAL TIMES THAT ALL THE DOORS AND WINDOWS WERE LOCKED AND THAT THERE IS NO EXITING THE FLOOR, HE COMMENTED THAT "THEY DON'T PLAY AROUND HERE". AFTE SNACKS TONIGHT, TOOK HS MEDS ORDERED. WENT TO BED SHORTLY THEREAFTER, AND SLEPT WELL TO THIS POINT.
[2018-08-21 12:09] VITALS: BP 135/74
[2018-08-21 14:17] VITALS: BP 135/74
--- NOTE | 2018-08-21 16:58 | NUR ---
7a-7p: Patient up ad nancy in halls and to , uses cane with ambulation. Patient urinated x2 on room floor, incident reported to Dr. Schreiber, tioleting program q 2hrs initiated to assist with toileting needs. Appetite good, consumes 75% of meals, feeds self. Wears bilat. lower leg braces with shoes for pain relief due to gout. Patient does ADL's independently, requires re-direction with occasional events and daily activities. Participates in group and therapy exercise. here to visit @ 4pm, update given.
[2018-08-21 19:39] VITALS: BP 120/70
--- NOTE | 2018-08-22 03:28 | NUR ---
VISIBLE IN DAYROOM INTERACTING WITH PEERS UPON INITAL ASSESSMENT THIS PM-OBSERVED TO BE RELAXED,NOTED SPONTANEOUS SMILING AND CONVERSATION WITH MALE PEER AT TABLE -APPEARS NEATLY GROOMED AND TAKES HS MEDICATION WITHOUT RESISTANCE-ORIENTED TO PERSON ONLY AND DURING 1;1 INTERACTION WITH THIS RN STATES HE BELIEVES HE HAS TO "BE ON THE HIGHWAY" TONIGHT-DID ACCEPT THAT HE WOULD BE STAYING HERE TONIGHT WITHOUT RESISTANCE AND WENT TO BED SHORT TIME LATER. DENIES C/O PAIN/DISCOMFORT VS OBTAINED AND WNL.GAIT SLIGHTLY UNSTEADY-USING QUAD CANE AND BRACE TO LE BILAT FOR REPORTED HX GOUT
[2018-08-22 07:00] VITALS: BP 97/50
--- NOTE | 2018-08-22 08:53 | NUR ---
REFUSED MEDS THIS AM. NOT LETTING NURSE SCAN ARM BRACELET. WHEN APPROCHED CLIENT STATED THAT I AM HIS NURSE, HE STATED THAT HE DIDN'T NEED ANYTHING AND WALKED AWAY. HE HAS BATH BLANKET AROUND SHOULDERS. HAS BRACES ON LEGS BILATERALY AND USES QUAD CANE. DIDN'T LET THIS NURSE LISTEN TO HIS LUNGS.
--- NOTE | 2018-08-22 11:22 | NUR ---
CLIENT REFUSING TO HAVE ARM BAND SCANNED, STATED HE DIDN'T WANT TO BE SIGNED UP FOR THIS CAODAISM, TOLD PT HE WAS IN HOSPITAL, HE SAID ANYWAY HE DIDN'T WANT HIS ARM BAND SCANNED. TELLING DR. SHANNON.
[2018-08-22 12:03] VITALS: BP 120/70
[2018-08-22 12:04] VITALS: BP 120/70
--- NOTE | 2018-08-22 12:05 | NUR ---
REFUSING TO EAT BREAKFAST AND LUNCH AT THIS TIME. REFUSES TO EAT. STATED IF HE CAN'T GO OUTSIDE THEN HE WON'T EAT. HE IS ON STRIKE.
--- NOTE | 2018-08-22 13:25 | NUR ---
CLIENT STILL REFUSED TO TAKE PO MEDS, ZYPREXA ORDERED BID. OFFERED PO MED, PUT THE PILL IN WATER CUP. CALLED SECURITY TO ASSIST. SEEN SHOT AND SAID NO SHOT, STILL WILL NOT TAKE PO. ADM ZYPREXA 2.5MG IM TO LEFT DELTOID. CLIENT STATED THANK YOU AFTERWARD.
--- NOTE | 2018-08-22 14:11 | NUR ---
CLIENT IS SITTING BY WEST EXIT DOOR. NOT COMMUNICATING WITH STAFF.
--- NOTE | 2018-08-22 15:15 | NUR ---
FAMILY HERE TO TALK WITH AND WITH BABS FOR FAMILY MEETING.
--- NOTE | 2018-08-22 17:23 | NUR ---
CLIENT OUT IN DINNING ROOM EATING DINNER. STARTED MOVING CHAIRS AND TABLES AROUND. ALSO MOVING OTHER PATIENT DINNER TRAY, TRYING TO BE HELPFUL.
--- NOTE | 2018-08-22 18:00 | NUR ---
CLIENT SITTING WITH OTHER CLIENTS AND TALKING ABOUT EATING FOOD FROM THE FARM. HE WAS HELPING OTHER CLIENTS PICKING UP TRAYS.
[2018-08-22 19:21] VITALS: BP 110/69
[2018-08-22 22:24] VITALS: BP 110/69
--- NOTE | 2018-08-23 04:36 | NUR ---
PT WANDERED INTO ANOTHER PTS ROOM AT ABOUT 2130. INFORMED HE WAS IN THE WRONG ROOM AND IN ATTEMPTING TO ESCORT PT FROM ROOM, PT STRUCK STAFF MEMBER WITH CANE AND TOOK A SWING STRICKING STAFF WITH AGLANCING BLOW TO LEFT CHEEK. PT TAKE TO FLOOR AND SECURITY NOTIFIED. IN ATTEMPTING TO RESTRAIN PT STAFF MEMBER WAS BITTEN ON RT FOREARM. SECURITY AND STAFF ESCORTED PT TO BED AND PT WAS PLACED IN SOFT 4 PT RESTRAINT. PT MEDICATED WITH IM ZYREXA PER PRN ORDER. MD AND CEMENT CONVEYOR OPERATOR NOTIFIED. ORDERED ADDITIONAL GEODON IM. PT GRADUALLY SETTLED AND RESTRAINTS WERE REMOVED AT 0130. PT CONTINUES TO REST AT THIS TIME.
[2018-08-23 08:18] VITALS: BP 120/68
[2018-08-23 12:04] VITALS: BP 120/68
[2018-08-23 13:50] LABS: URINE BILIRUBIN NEGATIVE (Negative); URINE BLOOD NEGATIVE (Negative); URINE CLARITY CLEAR; URINE COLOR YELLOW; URINE GLUCOSE-RANDOM* NEGATIVE (Negative); URINE KETONES NEGATIVE (Negative); URINE LEUKOCYTES-REFLEX NEGATIVE (Negative); URINE NITRITE-REFLEX NEGATIVE (Negative); URINE PROTEIN (DIPSTICK) NEGATIVE (Negative); URINE UROBILINOGEN 0.2 E.U./dl (0.2-1.0)
--- NOTE | 2018-08-23 13:59 | NUR ---
ASSUMED PATIENT CARE AT 0715 A.M. PATIENT IN BED AT THAT TIME, AROSE FOR BREAKFAST. EATS WELL, 100% OF MEALS. FLAT AFFECT, PLEASANT MOOD AT THAT TIME. NO BEHAVIIORAL HEALTH ISSUES OF THIS WRITING. NEW ORDER FOR DEPAKOTE 1,000 MG, FIRST DOSE NOW, FUTURE DOSES AT 2100. ADMINISTERED 1,000 MG DEPAKOTE AT APPROXIMATELY 11:30 A.M . ATTENDING [facility] GROUP THERAPY AT THIS TIME.
[2018-08-23 18:09] LABS: SYPHILIS AB Negative (Negative)
[2018-08-23 20:06] VITALS: BP 95/56
[2018-08-23 23:06] LABS: HBsAG-EMPLOYEE EXPOSURE Negative (Negative)
[2018-08-24 02:58] VITALS: BP 95/56
--- NOTE | 2018-08-24 03:50 | NUR ---
PT OUT WITH PEERS EARLY IN SHIFT BUT ON THE EDGE OF THE GROUP. COPERATIVE, AND TOOK HS MEDS ORDERED. AFTER SNACKS AND MEDS RETURNED TO ROOM AND BED. SLEPT WELL UNTIL 0330. AWAKE AND STANDING IN THE HUBBARD AT THIS TIME. ENCOURAGED TO GO BACK TO BED BUT REMAINS UP.
--- NOTE | 2018-08-24 06:05 | NUR ---
PT HAS BEEN UP AND MOSTLY OUT OF HIS ROOM SINCE 399. CHUCKY AND DENNIS. WHEN ASKED IF HE PLANS TO TAKE AM MEDS HE STATED "HELL NO!" PACING PERIODICALLY SOMETIMES WITH AND SOMETIMES W/O WALKER. NEEDED REDIRECTION NOT TO ATTEMPT TO GO IN OTHER PATIENTS ROOMS. SEEMS TO BE ON EDGE. CONTINUES TO VERBALIZE HIS DESIRE TO "GET OT OF HERE".
--- NOTE | 2018-08-24 12:31 | NUR ---
PSYCHOSOCIAL ASSESSMENT Diagnosis: MAJOR NEUROCOGNITIVE DISORDER Admit Date: 08/18/18 Psychiatrist: SHIVA Symptoms associated with current admission: Anxiety/panic Hallucinations Presenting problems: Pt was anxious and wa hearing voices. Pt will get upset if he does not have hings his ways. Precipitating Factors: Non-compliance psychothx Non-compliance medication Comments: History of High Risk Behavors: Other Suicide Risk Factors: D A-Signs of alcohol/substance abuse w/ suicide ideation B-Recent suicidal thoughts or attempts C-Recent thoughts or attempts of harming someone else D-Altered mental status due to psychiatric/chem dep etiology E-The behavior exists - add comment PSYCHIATRIC HISTORY Age of onset: 78 Prior hospitalizations: Hospital names and dates, if available: Most Recent Outpatient HX: Additional information: Legal Status: Voluntary Guardian/Conservatorship type: Contact name: Torsten Brown Contact phone: [phone] Other: Name: Phone: Other legal issues: (Arrests/convictions Current Status) None P.O. Name and Phone #: FAMILY HISTORY Place of : [place] Raised in: [facility] # Siblings & order: He had sibilings and he was 5th Describe relationships within family of origin: Pt was close with his sibilings. Pt was very active in family gatherings. Pt is the only cchild left out of his sibilings. Any psychiatric or substance abuse problems within family of origin: Y Has patient been sexually or physically abused, neglected or been taken advantage of financially? N Has the abuse been reported? N Other pertinent family information: Marital history/significant relationships: Domestic violence: N Children ages & who is caring for them: Pt has two adult sibilings. Is child welfare involved? N Drug history: None Alcohol Use: Frequency: Quantity: Have you ever felt you ought to Cut down on drinking? Have people Annoyed you by criticizing your drinking? Have you ever felt bad or Guilty about your drinking? Have you ever had a drink first thing in the morning to steady your nerves/get rid of a hangover(Eye shirt folder) CAGE TOTAL 0 If CAGE score is 3 or more, notify provider for withdrawal orders! AXIS SCREENING TOOL [place] I Mood Disorders: Other Conditions [place] II Personality/Mental Retardation: [place] III Medical Impairment: Alzheimer's [place] IV Problem(s) with: Primary support group [place] V: 50-Serious w/impairment Additional [place] comments: PERSONAL BACKGROUND Relevant cultural issues (ethnicity, values, beliefs, spiritual): Spiritual Roman Catholic: Religion Importance of druze to patient: Medium What hobbies/interests does the patient have? Travel [employer] Sexual orientation (relevant impact to current treatment): Heterosexual : Where did you serve: Branch of service: Rank: Discharge status: Are you a combat ? Occupational/Work: Do you work? N Do you want to work? N How many hours do you work/week? 0 How many jobs have you had in the past 5 years? 0 Do you need assistance finding a job? N Does the patient need assistance in job training? N Source of income: SSI Does patient have a Payee? Y Payee name: Annamaria Brown Approximate monthly income: 1000 Does patient have adequate funds for next 30 days? Y Education background: High school diploma Highest grade completed: 12th grade Other Educational/training programs: Functional deficits: Yes, see explain Explain functional deficits: Memory Orientation/thought organization independent living skills impulse control response to structure frustration tolerance decision making Current living situation: House/apartment Address/phone where pt. is living: Does the patient plan to continue there after DC? No Patient lives with: Another facility Will family/significant other be involved in treatment? Other community support services utilized: Pt will need a referral to memory care unit Support System Available (family/friend) Name: Annamaria Brown Relationship: Name: Orestes Brown Relationship: son Name: Mayra Suh Relationship: daughter Patient strengths: Family support Education Patient's assets: Good self care Verbal Positive support system Patient's weaknesses: Chronic hx mental illness Poor social skills Additional weaknesses: Patient's perception of current social staff worker/case management needs: Pt stated that SS assist with medication, and pt wellbeing. PRELIMINARY DISCHARGE PLAN Discharge plan/Community resource contacts: Pt will be discharge to a memory care unit. Discharge needs: Pt will need to be transported to the nursing facility. Problems anticipated on discharge: Compliance w/ med regimen Comments: (factors affecting DC plan/pt. response/interventions) Pt will referred to a memory care unit where he recieve care concerning his wellbeing, and healthcare needs.
--- NOTE | 2018-08-24 16:37 | NUR ---
ASSUMED PATIENT CARE AT 0715. PATIENT UP TO BREAKFAST, 100%. ALSO ATE 100% FOR LUNCH. COMPLIANT WITH MEDICATIONS.
--- NOTE | 2018-08-24 18:05 | NUR ---
PATIENT WAS CALM AND COOPERATIVE THIS AM AND FIRST PART OF AFTERNOON. HOWEVER, AT ABOUT 1500 PATIENT BEGAN TALKING ABOUT NEEDING TO SHUR OFF THE WATER. STATED THAT THE WATER WAS RUNNING AND HE NEEDED TO SHUT IT OFF. COULD NOT BE RE-DIRECTED AND CONTINOUSLY PACED OF HIS ROOM AND INTO THE HALLWAYS. JESUS ADMINISTERED SEREQOUEL 25 MG AT 1805. CONTINUE TO MONITOR.
[2018-08-24 18:12] VITALS: BP 110/66
[2018-08-24 20:09] VITALS: BP 96/58
--- NOTE | 2018-08-25 04:19 | NUR ---
ASSUMED CARE AT START OF SHIFT PT SITTING UP IN DAYROOM CALM COOPERATIVE, TOOK PO MEDICATION AND FOLLOWED COMMAND WITHOUT APPREHENSION. UP WITH WALKER TO ROOM , PT SLEPT MOST OF NIGHT THROUGHOUT FREQ ROUNDING. DISCUSSED PLAN OF CARE AT START OF SHIFT AND PT WAS AGREEABLE AND VERBALIZED UNERSTANDING, WILL CONINTUE TO MONITOR CLOSLEY AND WILL TREAT AND REPORT ACCORDINGLY.
[2018-08-25 09:21] VITALS: BP 92/51
--- NOTE | 2018-08-25 09:30 | NUR ---
CLIENT HAS CALM DEMINER THIS AM. ABLE TO PUT ON HIS SHOES WITH BRACES BY HIM SELF. WEARING REGULAR CLOTHES AT THIS TIME. WALKS WITH QUAD CANE. DENIES ANY PAIN. WANTS TO SEE HIS KIDS TODAY AND TALKING ABOUT LIVING WITH SON IN [place] FOR A COUPLE OF MONTHS. TOOK AM MEDS WITHOUT ISSUES. COORAPERATING AND NO AGGRESSION.
--- NOTE | 2018-08-25 11:17 | NUR ---
Weekly Recreational Therapy Progress Note Date of Admission: 08/18/18 Date of Activity Therapy Assessment: 08/20/18 Activity Goal: Patient will participate in 1 recreational therapy group per day until discharge. Initial Goal: Increase leisure awareness and coping skills to aid in frustration tolerance and impulse control. Weekly progress towards goal: On track Group participation level: Full Behaviors observed: Pt is engaged, cheerful, and enjoys exercise groups. Has shown random/off topic thoughts and disorientation. Plan: No change towards goal
[2018-08-25 11:48] VITALS: BP 92/51
--- NOTE | 2018-08-25 13:58 | NUR ---
CLIENT PARTICIPATED IN BRANCH LOGISTICS SUPERVISOR GROUP TODAY. HE STATED HIS NAILS ARE GETTING SPLIT, HE THINKS ITS DUE TO MEDICATIONS. GAVE HIM LOTION FOR HIS HANDS.
--- NOTE | 2018-08-25 14:06 | NUR ---
Nutrition followup: pt continues on [facility] unit. Eating well 100% of meals on regular diet. Stable weights past 2 years however pt reports prior UBW of 156#. BMI 18, appears thin with prior geriatric SOFTWARE TEST MANAGER documentation of decreased hand delivery engineer strength and sarcopenia. Agreeable to Ensure BID for added nutrition /protein. Continue as low risk with interentions in place.
[2018-08-25 15:16] VITALS: BP 92/51
--- NOTE | 2018-08-25 18:01 | NUR ---
NO BEHAVIOR ISSUES FROM PT TODAY. HE HAS ATE MEALS, TAKEN MEDS, AND COOROPERATING WITH STAFF.
[2018-08-25 19:33] VITALS: BP 94/58
--- NOTE | 2018-08-25 22:47 | NUR ---
ASSUMED CARE @ 19:15. SITTING IN THE DAYROOM WATCHING TELEVISION. HEART RRR, S1S2 NOTED. LUNGS CTA, ABD NORMOACTIVE. REPORTS BM TODAY. A&OX3. CONFUSION NOTED.
--- NOTE | 2018-08-26 04:58 | NUR ---
IN BED RESPIRATIONS EVEN AND UNLABORED, EYES CLOSED.
[2018-08-26 07:24] VITALS: BP 101/50
--- NOTE | 2018-08-26 14:12 | NUR ---
PATIENT'S BEHAVIOR AND MOOD CALM TO-DATE THIS SHIFT. COMPLIANT WITH MEDICATIONS, PARTICIPATED IN AM GROUP AND IS NOW PARTICIPATING IN AFTERNOON GROUP OF PLAYING CARDS. ATE 100% OF LUNCH AND BREAKFAST. CONTINUE TO MONITOR.
--- NOTE | 2018-08-26 18:37 | NUR ---
ONE OF PATIENT'S BRACES LOST A SCREW, CAUSING IT TO BE UNSAFE. PATIENT GIVEN WALKER TO USE FOR TIME.
[2018-08-26 19:32] VITALS: BP 99/46
--- NOTE | 2018-08-26 22:14 | NUR ---
ASSUMED CARE @ 19:15. PT IN THE DAY ROOM WATCHING TELEVISION. TOOK MEDICATIONS WITHOUT DIFFICULTY. A&OX3. THINKS HE IS IN [place]. DENIES SI AND HI.
[2018-08-26 23:53] VITALS: BP 99/46
[2018-08-27 07:30] VITALS: BP 112/67
--- NOTE | 2018-08-27 08:15 | NUR ---
PT UP THIS AM. NEEDING HELP WITH PUTTING ON HIS BRACES FOR HIS LEGS. WALKED OUT TO DINNING ROOM FOR BREAKFAST VIA WALKER. EATING BREAKFAST WITH NO COAXING.
--- NOTE | 2018-08-27 08:40 | NUR ---
TOOK MEDS THIS AM WITHOUT ISSUES.
[2018-08-27 11:41] VITALS: BP 112/67
--- NOTE | 2018-08-27 15:05 | NUR ---
PT PARTICIPATING IN GROUP AT THIS TIME.
--- NOTE | 2018-08-27 18:15 | NUR ---
PT REFUSING BLOOD DRAW FOR YANIV. ACID. WAS ABLE TO HAVE LAB DRAW CHANGED TO AM. LAB STATED THAT SHE IS THE LAB FOR AM ALSO. WE WILL TRY TO GET BLOOD DRAW.
--- NOTE | 2018-08-27 18:51 | NUR ---
CALLED AND HELPED WITH LAB DRAW TO HOLD HIS LEGS AND ARMS. HE GOT AGGITATED AND STARTED KICKING AT [employer]. ADM ZYPREXA 10MG IM TO RT HIP. PT WAS TRYING TO BITE AT [employer] AND KICK THEM. HE WAS TAKEN BACK TO ROOM WITH HIM IN CHAIR BY .
--- NOTE | 2018-08-27 19:00 | NUR ---
PT IN QUIET ROOM AT THIS TIME MONITORED VIA MONITOR AND STAFF.
--- NOTE | 2018-08-27 19:21 | NUR ---
PAPI BARRIOS STOCK CHECKERER CALLED TO FOLLOW-UP WITH LAB DRAW AND NOTIFIED OF BEING IN QUIET ROOM AT 1900.
--- NOTE | 2018-08-28 02:50 | NUR ---
UPON INITIAL ASSESSMENT AT 1845 BASB OBSERVED IN DAYROOM YELLING LOUDLY AND ATTEMPTING TO STRIKE OUT,BITE AND KICK SECURITY OFFICERS AND NURSING STAFF-KICKED TABLE TOWARD FEMALE PEER NEARLY STRIKING HER AND THREATNING TO HURT OTHERS-ZYPREXA 5MG ADMINISTERED IM LVG AND ESCORTED TO QUIET ROOM FOR SAFTEY-STAFF OUTSIDE LOCKED DOOR FOR CONSTANT OBSERVATION. BABS PROVIDED CRITERIA FOR DOOR BEING UNLOCKED MULTIPLE TIMES BY NURSING STAFF AND ASKED TO SIT ON MATTRESS AND TAKE DEEP BREATHS PT YELLS ANGRILY "ITS MY WAY OR THE HIGHWAY NOW" AND CHARGES FORWARD WITH FIST RAISED.
--- NOTE | 2018-08-28 03:06 | NUR ---
1930-LYING ON MATTRESS JUST INSIDE DOORWAY WITH PLASTIC COVER FROM MATTRESS PULLED OVER UPPER TORSO-ATTEMPTING TO PUT COVER OVER HEAD-SECURITY CONTACTED AND NURSING STAFF ENTERED TO REMOVE-OFFERED WATER AND TOILET-PT THREW WATER AT NURSING STAFF AND AND IS VERBALLY THREATNING WALKING TOWARD RN WITH HAND RAISED STATING "I'LL SHOW YOU " PACING IN ROOM AND WILL OCCASSIONALLY RATTLE AND PUSH AGAINST DOOR-LEANING MATTRESS UP AGAIST DOOR AND LYING ON FLOOR OF ROOM PUTTING FINGERS UNDER DOOR- SPEAKING LOUDLY-USING PROFANITY-
--- NOTE | 2018-08-28 03:18 | NUR ---
2129-HAS CONTINUED TO PACE IN QUIET ROOM AND REMAIN ARGUMENTATIVE AND HOSTILE WITH ATTEMPTED VERBAL INSTRUCTIONS AND DIRECTIONS FROM STAFF. CONTINUSOULY MONITORED AND FREQUENTLY INFORMED OF CRITERIA FOR RELEASE-FLUIDS OFFERED AND PT DID APPEAR TO ACCEPT BEFORE DUMPING ON FLOOR OF ROOM STATING "YOU ARN'T GOING TO GET ME" APPEARS SUSPICIOUS OF STAFF/MEDS/FLUIDS OFFERED.
--- NOTE | 2018-08-28 03:31 | NUR ---
2200- DOES APPEAR SLIGHTLY LESS AGITATED -CLINICIAN CONTACTED INFORMED OF BEHAVIORS/CONDITION-0RDERS RECEIVED-ZYPREXA 5MG GIVEN IM IN RVG AT APPROX 2230- DOOR UNLOCKED AND PT WALKED TO ROOM. GAIT SLIGHTLY UNSTEADY-ABLE TO FOLLOW DIRECTION FROM STAFF-NO THREATNING OR PHYSICALLY AGGRESSIVE BEHAVIOR-ASSISTED TO BED-BED EXIT ALARM ACTIVATED-
--- NOTE | 2018-08-28 03:34 | NUR ---
20:35 IN LOCKED QUIET ROOM BEHIND LOCKED DOOR. MONITORED CONTINUOUSLY BY STAFF AND MONITOR. STANDING WALKING TO CORNER OF ROOM. HAS MATTRESS STOOD UP AGAINST THE WALL. POUNDING ON THE DOOR WITH FIST AND BUMPING BODY AGAINST THE DOOR.
--- NOTE | 2018-08-28 03:36 | NUR ---
20:45 LEANING AGAINST MATTRESS TAT HE HAS STOOD VERTICLE ON THE WALL. ALTERNATL POUNDING ON THE DOOR AND YELLING OBSCENITIES. FEELING THE EDGE OF THE GLASS IN THE DOOR FOR A WAY TO BREAK THROUGH IT AND POUNDING ON IT WITH HIS FIST.
--- NOTE | 2018-08-28 03:37 | NUR ---
21:00 IN THE QUIET ROOM, WITH THE DOOR LOCKED AND CONSTANT OBSERVATION. NOTED FEELING THE LAUREANO, CORNER OF THE ROOM, AND UNDER THE DOOR WITH HIS FINGERS, THEN OCCASIONALLY POUNDING WITH HIS FIST. 21:15 IN QUIET ROOM, WITH THE DOOR LOCKED. STOOD THE MATTRESS UP BLOCKING THE WINDOW IN THE DOOR. OBSERVED ON THE MONITOR TO BE PACING THE ROOM FEELING THE LAUREANO AT THE CORNERS AND AT THE POINT WHERE THE WALL MEETS THE FLOOR.
[2018-08-28 07:05] VITALS: BP 126/69
--- NOTE | 2018-08-28 08:29 | NUR ---
THIS NURSE CONTACTED PATIENT'S SPOUSE BY PHONE AT 0800 TO NOTIFY OF PATIENT'S BEHAVIOR DURING THE NIGHT. DARIUSZ, SPOUSE, STATED THAT SHE WILL BE HERE AT 1045 VISITING HOURS TODAY.
--- NOTE | 2018-08-28 09:27 | NUR ---
VALPORIC ACID LEVEL 79 ON 08/28/18.
[2018-08-28 11:07] VITALS: BP 144/64
--- NOTE | 2018-08-28 12:48 | NUR ---
PATIENT RECALLED BEING RESTRAINED FOR BLOOD DRAW DURING THE NIGHT. VERBALIZED UNHAPPINESS WITH "VIOLATING MY RIGHTS," STATING THAT WHERE HE WAS (NAMED STATE, UNSURE OF WHERE HE MEANT), NOBODY EVER DID ANYTHING LIKE THAT BEFORE. COMPLIANT WITH A.M. MEDICATIONS; ATE BREAKFAST AND LUNCH, 100% OF EACH. LYING DOWN FOR A NAP AT THIS TIME. SPOUSE, DARIUSZ, VISITED THIS A.M.; NURSE DISCUSSED PATIENT'S BRACE LOSING AN ATTACHMENT. ALSO, EXPLAINED THAT PHYSICAL THERAPY IS PLANNING ON ASSESSING BRACE TOMORROW, IN ORDER TO REPAIR IF POSSIBLE.
[2018-08-28 16:39] LABS: HEMATOCRIT 35.3 % (42.0-52.0); HEMOGLOBIN 11.7 gm/dL (14.0-18.0); MCH 29.3 pg (26.0-34.0); MCHC 33.2 g/dL (28.0-37.0); MCV 88.2 fL (80.0-100.0); RBC 4.01 mil/uL (4.50-6.00); RDW 13.8 % (10.5-14.5); WBC 7.7 thou/uL (4.0-11.0)
[2018-08-28 17:03] LABS: ALBUMIN 3.1 g/dL (3.4-5.0); CREATININE 0.9 mg/dL (0.7-1.3); POTASSIUM 4.2 mmol/L (3.5-5.1); TOTAL BILIRUBIN 0.5 mg/dL (<0.1-1.0); TOTAL PROTEIN 6.3 g/dL (6.4-8.2)
[2018-08-28 17:24] LABS: TSH 2.054 uIU/mL (0.358-3.740)
[2018-08-28 19:27] VITALS: BP 94/57
--- NOTE | 2018-08-29 04:58 | NUR ---
OBSERVED TO BE SITTING QUIETLY IN DAYROOM WITH PEERS UPON INITAL ASSESSMENT THIS PM-SITS AWAY FROM PEER GROUP AT AT TABLE BY SELF-DENIES C/O PAIN/DISCOMFORT WHEN QUESTIONED STATES HAD "PRETTY GOOD" DAY. CONSTRICTED AFFECT-CONVERSATION DIFFICULT TO FOLLOW AT TIMES HE STATES "WE JUST FOUND OUT WE LOST EVERYTHING BUT MY FOLKS ARE TOUGH" ATE SNACK TOOK HS MEDS AND SHOWERED AND CHANGED CLOTHING WITH SET UP AND STANDBY ASSIST ONLY
--- NOTE | 2018-08-29 05:22 | NUR ---
UA COLLECTED AND BROUGHT TO LAB AT APPROX 0515
[2018-08-29 05:47] LABS: URINE BILIRUBIN NEGATIVE (Negative); URINE BLOOD NEGATIVE (Negative); URINE CLARITY CLEAR; URINE COLOR YELLOW; URINE GLUCOSE-RANDOM* NEGATIVE (Negative); URINE KETONES TRACE (Negative); URINE LEUKOCYTES-REFLEX NEGATIVE (Negative); URINE NITRITE-REFLEX NEGATIVE (Negative); URINE PROTEIN (DIPSTICK) NEGATIVE (Negative); URINE UROBILINOGEN 0.2 E.U./dl (0.2-1.0)
[2018-08-29 07:25] VITALS: BP 96/51
[2018-08-29 11:30] VITALS: BP 96/51
[2018-08-29 14:22] VITALS: BP 111/59
[2018-08-29 20:04] VITALS: BP 113/64
--- NOTE | 2018-08-30 06:05 | NUR ---
PATIENTS CARES WERE ASSUMED AT SHIFT CHANGE. PATIENT WAS ASSESSED AND MEDS WERE PASSED. HOURLY ROUND WAS DONE.PATIENT DID APPER TO BE SLEEPING.TOLE ON REPORT THAT HE DID SLEEP. NALDOE STATED PATIENT PATIENT SLEEP. REPORTED PATINT SLEEEP. HIS FEET ARE SWOLLOEN 2+. THE BED IS IS A LOW AND LOCKED POSITION. WILL CONTINUE TO MONITOR.
--- NOTE | 2018-08-30 07:38 | NUR ---
Care assumed, resting in bed, resp even and unlabored. Noc shift reported that patient was restless during the noc, up and down in bed, ambulating in halls, no behaviors reported.Will continue to monitor
[2018-08-30 19:49] VITALS: BP 116/66
--- NOTE | 2018-08-30 22:00 | NUR ---
PT UP AND OUT OF ROOM AT BEGINNING OF EVENING. EDGE OF THE GROUP AND VERY PREOCCUPIED WITH WALKER, AND WATCHING THE COMINGS AND ELIOT OF PEOPLE. OCCASIONALLY TRYING THE EXIT. TOOK HS MEDS, AND EYE DROPS. TALKIN TO HIMSELF AND MAKING NO SENSE. DISORIENTED. CURRENTLY STANDING IN HUBBARD AND LEANING AGAINST THE WALL NEAR THE DOOR. IGNORING STAFFS ENTREATIES TO GO TO BED IT IS GETTING LATE.
[2018-08-31 00:18] VITALS: BP 116/66
--- NOTE | 2018-08-31 04:26 | NUR ---
PT FINALLY WENT TO ROOM AND TO BED ABOUT MIDNIGHT. REMAINED IN ROOM REMAINDER OF THE NIGHT. UP TO BR X1. ASLEEP AT THIS TIME.
--- NOTE | 2018-08-31 10:54 | NUR ---
Nutrition followup: Pt continues to eat very well, 100% of meals and enjoys the ensure BID. No new weight to assess since 08/19. Continue to encourage good po/protein and supplements-documented sarcopenia. Continue as low risk.
--- NOTE | 2018-08-31 15:16 | NUR ---
ASSUMED PATIENT CARE AT 0715. PATIENT HAS BEEN UP FOR BREAKFAST AND LUNCH; ATTENDED SW GROUP. OBSERVED THAT HE PARTICIPATED ACTIVELY IN GROUP, INTERACTING APPROPRIATELY TO BOARD QUESTIONS. HOWEVER, HIS VERBALIZATION DID NOT RELATE TO SUBJECT. PATIENT HAS HAPPY AFFECT, CALM MOOD, NO BEHAVIORS OBSERVED TO-DATE THIS SHIFT. CONTINUE TO MONITOR.
[2018-08-31 16:12] VITALS: BP 100/56
--- NOTE | 2018-08-31 16:49 | NUR ---
Melvin met with . Spoke to son Orestes at same time on speaker phone. did go to [facility] today and claimed that the Medicaid application was filled out. Said that a Laura Alex (emergency manager) [phone] said that before the application would be accepted that another document "[place] [employer] Liaison Family Support Division of family assets" form must be filled out and accompany the Medicaid application. So - the application was not left at the [facility]. claims that they currently do not have a bed for patient, but are working on getting him one. Son and concerned about Medicare paying for a "Transition Period" during the time it takes for Medicaid to begin. brought in DPOA for both healthcare and financial. Copies are on chart.
--- NOTE | 2018-09-01 04:05 | NUR ---
IN BED ASLEEP UPON INITIAL OBSERVATION AT 1914-EASILY ROUSABLE TO VERBAL PROMPTS BUT RESISTIVE WITH COMING OUT TO DAYROOM FOR WRAP UP GROUP OR PM SNACK-ANGRILY JERKING ARM AWAY WITH ATTEMPTS TO PUT BP CUFF ON FOR VS STATING "NO" REFUSED HS MEDS AT 2099-ROLLING OVER AWAY FROM ME AND REFUSING TO OPEN EYES OR SIT UP-REAPPROACHED WITH HS MEDS AT 2144 AND DID SIT UP AND TAKE THEM-REPORTING A HEADACHE AND RUBBING CHEONDOISM/GRIMACING-DENIES ANY DIZZINESS,VISUAL CHANGES OR ACCOMPNYING SYMPTOMS-[id number] GIVEN PO PRN ALONG WITH ICE PACK AND DOES REPORT SIGNIFICANT DECREASE IN PAIN APPROX 45 MINUTES LATER-SAT IN DAYROOM UNTIL APPROX 2230 BEFORE RETURNING TO ROOM-IS NOTED TO BE RESTLESS FROM [phone] FREQUENTLY COMING TO DOORWAY AND LOOKING DOWN HALLWAYS OR WANDERING IN HALLWAYS- STATING TO STAFF"I'M IN A BIND I'M SUPPOSED TO BE MEETING THEM ON THE ROAD DO YOU THINK I COULD GET A RIDE OVER THERE TONIGHT" DOES ACCEPT REDIRECT AND RETURN TO ROOM FOR SHORT TIME-APPEARS HYPERVIGILANT PEERING OUT FROM BEHIND DOOR IN ROOM AND WATCHING STAFFS MOVEMENTS JULIUS-BP TAKEN AT 2129 AND IS 108/64 P-72.
[2018-09-01 08:00] VITALS: BP 111/67
[2018-09-01 08:10] VITALS: BP 111/67
--- NOTE | 2018-09-01 08:55 | NUR ---
PT TOOK AM MEDS WITHOUT ANY ISSUES, THYROID AND PROTONIX WITH AM MEDS.
--- NOTE | 2018-09-01 08:55 | NUR ---
PT UP WALKING IN THE HUBBARD THIS AM AROUND 0730. CHECKING DOORS, EXIT SEEKING. PT WAS ABLE TO SIT DOWN FOR BREAKFAST.
--- NOTE | 2018-09-01 10:59 | NUR ---
MIKAYLA and Dr. Schreiber called the pt son Orestes concerning the Mediciad application. MIKAYLA stated that she spoke with Laura the business line manager at [facility], she stated that she mention to Mrs. Brown that the Asset documentation need to be submit, and turn to the facility. Laura, stated that the facility is unable to hold the bed due to the documentation not been submitted. Dr. schreiber asked would he consider coming to [place] to assist his mother with finding placement. Orestes stated that he will be here on September 08, 2018 to assist with placement[address] Dr. Schreiber stated he will not hotline until the son comes in town to see if he will place his father into a memory care setting. MIKAYLA will follow-up with pt upon discharge.
--- NOTE | 2018-09-01 13:00 | NUR ---
AFTER LUNCH PT WENT TO [facility]. NO BEHAVIORS SEEN FROM PT AT THIS TIME.
--- NOTE | 2018-09-01 18:09 | NUR ---
PT IS UP WALKING AROUND THE UNIT STATED HE IS GOING HOME NOW. CHECKING DOORS AND CABNETS AND MESSING WITH HIS WALKER.
[2018-09-01 19:35] VITALS: BP 114/77
[2018-09-01 23:04] VITALS: BP 114/77
--- NOTE | 2018-09-01 23:28 | NUR ---
PT RESTLESS, BUT WAS ABLE TO ENGAGE IN CONVERSATION WITH THIS STAFF ABOUT HIM GROWING UP IN [place], AND FISHING. HE TALKED ABOUT HOW HE LOVED [facility]. ATTENTION SPAN SHORT, AND GETS DISTRACTED EASILY. CHECKING OUT THE DOORS, LOOKING TO GET OUT. FRUSTRATED, AND DIFFICULT TO DISTRACT FROM ESCAPE EFFORTS.
--- NOTE | 2018-09-02 03:59 | NUR ---
PT FINALLY WOUND DOWN AND WAS ABLE TO LET US ASSIST HIM TO BED AT 0030. CONTINUES TO SLEEP AT THIS TIME.
[2018-09-02 07:45] VITALS: BP 110/55
--- NOTE | 2018-09-02 09:00 | NUR ---
PT INCON. OF URINE THIS AM AND WENT TO OTHER BED TO LAY DOWN. NEEDING PROMPTING TO GETTING UP AND DRESSED. PT PUT ON BRACES AND ABLE TO WALK WITH WALKER.
--- NOTE | 2018-09-02 12:28 | NUR ---
PT OUT IN DINNING ROOM TO EAT LUNCH. NO AGGRESSIVE BEHAVIORS SEEN THIS AM, TOOK MEDS THIS AM WITHOUT ANY ISSUES.
--- NOTE | 2018-09-02 14:27 | NUR ---
PT DIDN'T WANT ARMBAND SCANNED AT FIRST. WAS ABLE TO SCAN WHEN BROUGHT OVER GLASSES FROM ROOM. PT TOOK 1500 MED WITHOUT ANY ISSUES.
[2018-09-02 19:58] VITALS: BP 119/64
--- NOTE | 2018-09-02 22:28 | NUR ---
ASSUMED CARE OF THE PT AT 1930 PM. ALERT ET ORIENTED X 2. CONTINUES TO HAVE A FLAT AFFECT, APPEARS TO BE RESPONDING TO INTERNAL STIMULI. HE GRABS AT THE AIR. DENIES ANY PAIN, ANXIETY, DEPRESSION, SI/HI/A/V HALLUNICATIONS. WALKS WITH A WALKER. REMAINS ON 12 MINUTE CHECKS FOR HIS SAFETY.
--- NOTE | 2018-09-03 02:48 | NUR ---
THE PT HAS BEEN UP AND AROUND THE UNIT A COUPLE OF TIMES DURING THE NIGHT AND THEN THE TWISTING FRAME CHANGER WAS ABLE TO GET HIM BACK TO BED. HE IS SLEEPING CURRENTLY AT THIS TIME.
--- NOTE | 2018-09-03 06:40 | NUR ---
THE PT SLEPT 8 HOURS LAST NIGHT.
[2018-09-03 07:30] VITALS: BP 104/58
--- NOTE | 2018-09-03 10:50 | NUR ---
PATIENT PLEASANT AND CALM. MANUVERS AROUND UNIT WITH WALKER. APPETITE GOOD - RESISTANT TO MEDICATION COMPLIANCE - REFUSED PROTONIX AND LEVOTHYROXINE EARLY AM - APPROACHED WITH MORNING MEDICATIONS DURING BREAKFAST AND REFUSED ONCE AGAIN. SEVERAL ATTEMPTS TO ENCOURAGE PATIENT OF IMPORTANCE WERE MET WITH REFUSAL AND DENIAL. KEPT STATING WOULD TAKE LATER AFTER HE LEFT. STATEMENTS IRRATIONAL AND PATIENT CONFUSED. APPROACHED ONCE AGAIN STILL WOULD NOT TAKE. DENIES ANY S/I NO EVIDENCE OF INTERNAL STIMULI THIS MORNING. PARTICIPATED IN GROUP ACTIVITY INITIATED BY [employer]. WILL ENCOURAGE TO BE COMPLIANT WITH MEDICATIONS.
[2018-09-03 20:00] VITALS: BP 85/48
--- NOTE | 2018-09-03 22:02 | NUR ---
ASSUMED CARE @ 19:30, AMBULATING WITH WALKER AD LALO IN THE HALLWAY. TESTING EACH DOOR TO SEE IF IT WILL OPEN. COMPLIANT WITH 2100 MEDS. IRRATIONAL STATEMENTS MADE IN ANSWER TO QUESTIONS. WHEN ASKED WHAT TIME HE THOUGHT HE WOULD GO TO BED, HE RESPONDED "ILL GO TO BED IF HE IS NOT RESTLESS"POINTING TO HIS LEFT TO AN UNSEEN ENTITY. WILL CONTINUE TO MONITOR.
[2018-09-04 02:38] VITALS: BP 85/48
--- NOTE | 2018-09-04 09:12 | NUR ---
0730: Report rec from noc shift, care assumed. Ambulatory in halls with assist of walker, pt. observed entering into other pts rooms, re-direction given with good results. Takes meds w/o difficulty, feeds self brk, appetite good, consumed 100% of brk.
--- NOTE | 2018-09-04 12:33 | NUR ---
CATARINA was able to speak with Pt's , Carmen, during visiting hours. Carmen wanted information on if a facility had accepted the Pt. Upon review of the chart and notes, CATARINA informed Carmen that [facility] was in need of the Declaration and assessment of assets form. Carmen informed that her son had the form but did not want to fax it until Pt was accepted. CATARINA informed that the form was a part of the medicaid application and needed to be submitted prior to a facility accepting the Pt. Carmen stated she would have her son send the form over to [facility]. Carmen also informed the she has applied for placement for the Pt at [facility]. I encouraged Carmen to call both facilities to ensure she has sent the proper paperwork and inquire on next steps. Skylar stated that her and her son would be working on this this coming week. Catarina talked to Skylar concerning the importance of finding a placement and offered to print out additional facilities she can look into if necessary. Carmen informed she had a list and expressed knowing the importance of finding placement for Pt. Carmen had no other question or concerns during this interaction.
[2018-09-04 20:00] VITALS: BP 107/68
--- NOTE | 2018-09-04 23:34 | NUR ---
ASSUMED CARE OF THE PT AT 1930 PM. ALERT ET ORIENTED X ONE. WALKS WITH A FAIRLY STEADY GAIT WHEN HE USES HIS WALKER. TOOK HIS HS MEDICATIONS WITHOUT ANY DIFFICULTY.
--- NOTE | 2018-09-05 04:41 | NUR ---
THE PT HAS BEEN GETTING UP AND DOWN FROM THE BED, NEEDING TO GO TO THE BATHROOM. AFTER VOIDING THE PT HAS BEEN ABLE TO BE REDIRECTED BACK TO BED. REMAINS ON 12 MINUTE CHECKS.
--- NOTE | 2018-09-05 04:58 | NUR ---
THE PT SLEPT 7.4 HOURS LAST NIGHT.
[2018-09-05 07:15] VITALS: BP 106/58
--- NOTE | 2018-09-05 10:48 | NUR ---
0730: Report rec. from noc shift, care assumed. Up in room, independent ADL's, wears lower leg braces with shoes while for gout pain. Incont of urine, wears pull-up. Ambulated to DR with assist of walker, gait steady. No behaviors noted in DR, appetite fair, feeds self. Continues to exit seek, with successful re-direction.
[2018-09-05 19:31] VITALS: BP 127/69
[2018-09-06 00:27] VITALS: BP 127/69
--- NOTE | 2018-09-06 04:11 | NUR ---
PT RELAXED IN DAYROOM EARLY IN EVENING. SNACK AND HS MEDS TAKEN W/O PROBLEM. ONLY TRIED DOOR ONE TIME THIS PM. WENT TO ROOM AND BED ABOUT 2130. SLEPT WELL THROUGH THE NIGHT TO THIS POINT.
--- NOTE | 2018-09-06 10:15 | NUR ---
DILTIAZEM 120MG HELD RELATED TO LOW BLOOD PRESSURE OF 90/59. DR. SALINAS NOTIFIED. PATIENT COMPLAIN OF STOMACH UPSET, MAALOX 15MG GIVEN PO WITH POSITIVE EFFECT NO FURTHER COMPLAIN VOICED, WILL MONITOR FOR SAFETY.
[2018-09-06 14:05] VITALS: BP 96/59
--- NOTE | 2018-09-06 16:41 | NUR ---
MIKAYLA spoke with Jayne Suh the admission coordinator at [facility]. Jayne that clinical pt can be accepted. However, the pt need to provide private until he is able to get Medicaid. Jayne stated she provided this information to the pt son Orestes. Jayne stated that the family have accepted the offer at this time. Jayne stated that she will follow-up with MIKAYLA when the family has provided documentation concerning paying privately. MIKAYLA will follow-up with Orestes, and Dr. Schreiber.
--- NOTE | 2018-09-06 16:45 | NUR ---
Catarina and Dr. Schreiber call Orestes in left a voicemail concerning the information that was provided by Jayne Suh at [facility]. CATARINA provided contact information and requested a phone call back.
--- NOTE | 2018-09-06 16:47 | NUR ---
Jayne Suh returned the phone call concerning the pt family providing private pay until mediciad application is approved. Jayne stated that facility will accept pt due too pt Annamaria willing to pay. Jayne stated that she waiting on the contract to be signed that the facility will be able to recieve the funds from his pension, and social security. Sw will follow-up with the facility on September 07, 2018 to see if the documentation was completed.
[2018-09-06 19:46] VITALS: BP 121/69
--- NOTE | 2018-09-07 02:15 | NUR ---
PT CALM AT START OF THE SHIFT BUT TOWARDS MIDNIGHT IS VERY RESTLESS, VERY HAD TO REDIRECT, CONTINUOUSLY WALKING UP AND DOWN THE HUBBARD NOT USING WALKER AND GOING TO ROOM TO ROOM, ZYPREXIA IM GIVEN ORDERED WITH THE ASSISTANCE OF SECURITY, ON EPISODE HE PUT ON THE LEFT SHOE TO HIS RIGHT FOOT AND VICE VERSA, OTHERWISE NO SOB NOTED, DENIES PAIN, HAD ICECREAM FOR SNACK LAST NOC, CURRENTLY RESTING GOOD, MONITORED.
--- NOTE | 2018-09-07 09:23 | NUR ---
ASSUMED PATIENT CARE AT 0700. PATIENT LYING IN SUPINE POSITION IN BED, BREATHING, BUT WILL NOT RESPOND TO VERBAL AND TOUCH. MEDICATIONS CANNOT BE GIVEN AT THIS TIME. UNABLE TO GET PATIENT UP FOR BREAKFAST. CONTINUE TO MONITOR PATIENT.
--- NOTE | 2018-09-07 10:45 | NUR ---
Follow up: eating 100% meals, no new wt. Remains low nutrition risk
[2018-09-07 13:54] VITALS: BP 113/72
--- NOTE | 2018-09-07 16:38 | NUR ---
MIKAYLA recieved a phone call from Jayne Suh stating that the pt Annamaria have not returned the required documentation concerning facility being paid for his care. Jayne stated that Orestes the son is stating that he will make sure his mother provide the information that is needed on September 08, 2018.
[2018-09-07 19:50] VITALS: BP 104/58
--- NOTE | 2018-09-07 22:48 | NUR ---
ASSUMED CARE @ 19:30. PT SITTING IN DAY ROOM, AND AMBULATING AD LALO IN THE HALLWAYS CHECKING DOORS TO FIND AN OPEN DOOR. TOOK MED @ 2100, COOPERATIVE AND CONVERSATIONAL. DENIES SHANA AND EVELIO.
[2018-09-08 01:20] VITALS: BP 104/58
--- NOTE | 2018-09-08 05:56 | NUR ---
SLEPT WELL THROUGHOUT THE NOC, SLEEPING A TOTAL OF 7.8 HOURS.
--- NOTE | 2018-09-08 09:27 | NUR ---
PATIENT UP IN MORNING FOR BREAKFAST, VERY DROWSY BUT RESPONSIVE TO QUESTIONS ADDRESSED TO HIM. STATED NO THOUGHTS OF S/I - STATED NOT READY TO GO HOME AND CHUCKLED ABOUT IT. UNSURE WHY WHEN QUESTIONED WHY. STATED HAPPY HERE. PATIENT MENTIONED DISCOMFORT WITH THROAT - UNABLE TO EXPLAIN. DIFFICULT SWALLOWING - CLAIMED HAD COUGH - BUT OBSERVED NO COUGHING. APPETITE GOOD - CALM AND AGREEABLE. TOOK MEDICATIONS WITHOUT RESISTANCE OF INCIDENCE.
[2018-09-08 13:57] VITALS: BP 97/63
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
[2018-09-08 20:33] VITALS: BP 97/52
--- NOTE | 2018-09-09 03:09 | NUR ---
PATIENT IS ALERT X 1-2. SKIN WARM AND DRY. RESP EVEN AND UNLABORED. WILL BE DC IN AM AT 11 AM.NO SUICIDAL AND HOMOCIDAL IDEATION NOTED OR VOICED. UP AD LALO IN HALLWAY WITH WALKER. PATIENT IS A NO CODE. REMAINS NO FALL RISK. LUNGS CTA. NO EDEMA NOTED TO LOWER EXTREMITIES. TAKES MEDICATION AND FOOD WELL. REMAINS VERY FORGETFUL MOST OF THE TIME. CAN REDIRECTED PATIENT MOST OF THE TIME.ON ROOM AIR. NO BEHAVIOR EPISODES NOTED LAST NIGHT. CONT PLAN OF CARE.
[2018-09-09] MEDS ORDERED: ASA81BEC PO (09:36)
[2018-09-09] MEDS ORDERED: SEROQUEL 25 MG25 M1 PO (09:37)
[2018-09-09] MEDS ORDERED: DEPAKOTE ER500 MG PO (09:37)
[2018-09-09] MEDS ORDERED: HALOPERIDOL 5 MG5 MG PO ×2 (09:37→11:09)
[2018-09-09] MEDS ORDERED: PANTOPRAZOLE SO40 M1 PO (11:09)
[2018-09-09] MEDS ORDERED: SYNTHROID50 MCG PO (11:09)
[2018-09-09] MEDS ORDERED: VITAMIN D1000 UNI1 PO (11:09)
[2018-09-09] MEDS ORDERED: MIRALAX17 GM PO (11:09)
[2018-09-09] MEDS ORDERED: FLOMAX0.4 MG PO (11:09)
[2018-09-09] MEDS ORDERED: CARDIZEM CD120 MG PO (11:09)
[2018-09-09] MEDS ORDERED: BRIMONIDINE TART5 ML OPHTHALMIC (11:09)
[2018-09-09] MEDS ORDERED: VITAMIN B-12500 MCG PO (11:09)
[2018-09-09] MEDS ORDERED: ALLOPURINOL 30300 M1 PO (11:09)
[2018-09-09 11:47] VITALS: BP 122/69
--- NOTE | 2018-09-09 12:56 | NUR ---
Patient Name: BABS RAO Admission Date: 08/18/18 DISCHARGE PLAN: Pt will be discharge to [facility]. & [place] Care Assessment: Pt was assessed by Dr. Schreiber, and was diagnosed with Major Neurocognitive Disorder. Level II Assessment: Level I screening complete Transportation: Pt will be transported by [facility] through [facility]. Special Instructions/Notes: Pt will need to be in a memory care unit. DISCHARGE TO FACILITY: Memory Care Facility: [facility] Fax: Address: [address] [place] [id number] Contact Name: Jayne Suh PCP: NIKOLAI Psychiatrist:
--- NOTE | 2018-09-09 13:10 | NUR ---
PATIENT DISCHARGED TO [facility] AT THIS TIME, VIA TRANSPORTATION VAN. PATIENT CONFUSED AT TIME OF DISCHARGE. NURSE HAD PREVIOUSLY CALLED REPORT TO WALDEMAR THOMAS AT [facility]. ALL BELONGINGS SENT WITH PATIENT, INCLUDING HIS TRIPOD CANE.
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
== END 2018-09-09 13:05 | DRG 57 ==
LOC: SBH
PROVIDERS: Hospitalist; Internal Medicine; ADMIT Psychiatry & Neurology Psychiatry
DX: G30.9 Alzheimer's disease, unspecified (principal); N39.0 Urinary tract infection, site not specified; F02.81 Dementia in other diseases classified elsewhere, unspecified severity, with behavioral disturbance; F01.51 Vascular dementia, unspecified severity, with behavioral disturbance; I10 Essential (primary) hypertension; I48.91 Unspecified atrial fibrillation; J44.9 Chronic obstructive pulmonary disease, unspecified; E03.9 Hypothyroidism, unspecified; N40.0 Benign prostatic hyperplasia without lower urinary tract symptoms; G62.9 Polyneuropathy, unspecified; I25.10 Atherosclerotic heart disease of native coronary artery without angina pectoris; I25.5 Ischemic cardiomyopathy; F41.9 Anxiety disorder, unspecified; R41.0 Disorientation, unspecified; Z66 Do not resuscitate; F29 Unspecified psychosis not due to a substance or known physiological condition; Z85.038 Personal history of other malignant neoplasm of large intestine; Z98.49 Cataract extraction status, unspecified eye; Z80.9 Family history of malignant neoplasm, unspecified; Z82.49 Family history of ischemic heart disease and other diseases of the circulatory system; Z79.82 Long term (current) use of aspirin; Z79.899 Other long term (current) drug therapy
CPT/HCPCS: 10880

== ENCOUNTER 2019-08-18 19:50 | Inpatient (IN) | payer OTHER ==
[~2019-08-18] VITALS: Ht 185.4 cm; Wt 69.9 kg
[~2019-08-18 19:50] MED LIST changes: +ASA81BEC PO; +BRIMONIDINE TART5 ML OPHTHALMIC; +DEPAKOTE ER500 MG PO; +HALOPERIDOL 5 MG5 MG PO; +MIRALAX17 GM PO; +PANTOPRAZOLE SO40 M1 PO; +SEROQUEL 25 MG25 M1 PO
[2019-08-18 20:04] VITALS: BP 162/82
[2019-08-18] MEDS ORDERED: CARDIZEM SR 60M60 MG PO (20:25)
[2019-08-18 20:26] LABS: HEMATOCRIT 40.9 % (42.0-52.0); HEMOGLOBIN 13.4 gm/dL (14.0-18.0); MCHC 32.8 g/dL (28.0-37.0); MCV 91.5 fL (80.0-100.0); RBC 4.46 mil/uL (4.50-6.00); RDW 13.8 % (10.5-14.5); WBC 8.2 thou/uL (4.0-11.0)
[2019-08-18] MEDS ORDERED: CARDIZEM CD120 MG PO (20:26)
[2019-08-18 20:30] LABS: CALCIUM 9.3 mg/dL (8.5-10.1); CREATININE 0.9 mg/dL (0.7-1.3); POTASSIUM 3.8 mmol/L (3.5-5.1)
[2019-08-18] MEDS ORDERED: HALOPERIDOL20 MG PO (20:33)
[2019-08-18] MEDS ORDERED: MUCUS RELIEF600 M1 PO (20:34)
[2019-08-18] MEDS ORDERED: MULTI-BETIC TA1 EACH PO (20:35)
[2019-08-18] MEDS ORDERED: PROBIOTIC1 EAC7 PO (20:36)
[2019-08-18] MEDS ORDERED: OMEGA-3 FISH1200 MG PO (20:36)
[2019-08-18 20:37] LABS: ALBUMIN 3.9 g/dL (3.4-5.0); TOTAL BILIRUBIN 0.3 mg/dL (<0.1-1.0)
[2019-08-18] MEDS ORDERED: DORYX MPC120 MG PO (20:37)
[2019-08-18 22:02] LABS: URINE BILIRUBIN NEGATIVE (Negative); URINE BLOOD NEGATIVE (Negative); URINE CLARITY CLEAR; URINE COLOR YELLOW; URINE GLUCOSE-RANDOM* NEGATIVE (Negative); URINE KETONES NEGATIVE (Negative); URINE LEUKOCYTES-REFLEX NEGATIVE (Negative); URINE NITRITE-REFLEX NEGATIVE (Negative); URINE PROTEIN (DIPSTICK) NEGATIVE (Negative)
[2019-08-18 23:33] VITALS: BP 154/76
--- NOTE | 2019-08-18 23:40 | NUR ---
CALLED REPORT TO JJ AT [facility] AND GAVE KENNETH REPORT
[2019-08-18 23:50] VITALS: BP 139/83
[2019-08-19] MEDS ORDERED: VITAMIN B-12500 MCG PO (01:31)
[2019-08-19] MEDS ORDERED: DIVALPROEX SOD500 MG PO (01:31)
[2019-08-19] MEDS ORDERED: DOXYCYCLINE HY100 M3 PO (01:32)
[2019-08-19] MEDS ORDERED: MUCUS ER600 M1 PO (01:34)
[2019-08-19] MEDS ORDERED: OMEGA 3-6-9 11200 M1 PO (01:35)
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
[2019-08-19 08:23] VITALS: BP 103/59
[2019-08-19 11:18] VITALS: BP 103/59
--- NOTE | 2019-08-19 11:49 | NUR ---
ASSUMED CARE AT 0700 THIS MORNING. PT. STABLE. HE GOT UP, DRESSED AND INTO A W/C ONTO THE PT. FLOOR FOR MEALS. HE HAS BEEN PLEASANT AND COOPERATIVE. HE TOOK HIS MEDICATIONS WITHOUT DIFFICULTIES. NOTED TO HAVE A FLAT AFFECT AND VERY BLAND MOOD. SPOKE WITH HIS ON THE PHONE TODAY.
[2019-08-19 20:35] VITALS: BP 113/67
--- NOTE | 2019-08-19 22:41 | NUR ---
Assumed care of patient at change of shift. He was in W/C with chair alarm in day room. Pt. unable to propel W/C correctly but does attempt to move W/C by grabbing furniture and pulling himself along, as well as using his legs to scoot. Both of these activities are effective only slightly. No signs or symptoms of pain or distress noted or reported.
[2019-08-20] VITALS (19 sets, daily range): BP systolic 59–113; BP diastolic 32–67
--- NOTE | 2019-08-20 07:57 | NUR ---
PT WAS AWAKE PRIOR TO TRANSFERING TO W/. PT WAS TRANSFERED TO W/, EYES ROLLED BACK IN HEAD, PT NOT RESPONDING TO STAFF. VS OBTAINED 89/48, 69-72. PT DID SHAKE HEAD NO, LEFT ARM TWITCHING, SLIGHT DIAPHORESIS TO FORHEAD, PT APPEARS PALE IN COLOR. PT TRANSFERED BACK TO BED. PT WAS INCON. OF URINE.
--- NOTE | 2019-08-20 08:03 | NUR ---
NOTIFIED DR. SÁNCHEZ, VS TAKEN 85/49, 57-59. CALLED RAPID RESPONSE, PT NOT RESPONDING TO VERBAL STIMULI. PT DID RESPOND TO STERNAL RUB. DR. MILLER NOTIFIED OF CONDITION. WILL ASSESS BP/PULSE Q15MIN. IF CONT. TO BE LOW, WILL POSS. GIVE BOLUS OF FLUIDS.
--- NOTE | 2019-08-20 08:10 | NUR ---
PT PLACED IN [facility]. BP TAKEN MANUALLY FOR RESULT OF 110/80. PT WAS YAWNING WHILE IN W/C 0800.
--- NOTE | 2019-08-20 08:31 | NUR ---
EKG OBTAINED AND SHOWED AFIB, WAS SR IN ER 08/15 EKG.
[2019-08-20 09:08] LABS: HEMOGLOBIN 13.7 gm/dL (14.0-18.0)
--- NOTE | 2019-08-20 09:15 | NUR ---
GAVE PT SOME ORAL FLUIDS. PT AWAKE AND TALKING TO STAFF. PT STILL IN BED.
--- NOTE | 2019-08-20 10:50 | NUR ---
DR. MILLER HERE TO SEE PT. WILL NEED ABBI HOSE AND REG DIET FOR SALT INTAKE. HOLDING DILTAZEM THIS AM.
--- NOTE | 2019-08-20 12:57 | NUR ---
PT ALERT AND READY TO GET IN W/C THIS AM. PT BEEN GIVEN WATER THROUGHT THIS AM.
--- NOTE | 2019-08-20 13:00 | NUR ---
PT HAS DRANK 500ML OF WATER. PT UP TO W/C. PT STARTED TO GET LIGHT HEADED AND ALMOST PASSING OUT. NOTIFIED DR. SÁNCHEZ. PT OUT IN DINING ROOM WITH WATER AND HEATED UP MEAL TRAY. PT DRINKING WATER/TEA AND EATING TALKING WITH REC THERAPY.
--- NOTE | 2019-08-20 13:49 | NUR ---
PT ATE 50% OF LUNCH AND HAS DRANK 750ML OF FLUID, PT EATING COOKIES AND ICE CREAM.
--- NOTE | 2019-08-20 18:00 | NUR ---
PT TOOK VELCRO LAP AXEL OFF AND STARTED STANDING AND WALKED 10 FEET ASSISTED. PT WAS UNSTEADY WITHOUT A WALKER AND WAS PUT BACK IN W/C. PT HELD LAB AXEL AND WHEELED SELF AROUND UNIT CHECKING EXIT DOORS.
--- NOTE | 2019-08-21 04:51 | NUR ---
ASSUMED CARE OF PT AT 1900HRS. PT WAS CALM AND COOPERATIVE THIS SHIFT. PT TOOK ALL MEDS THIS SHIFT. PT DENIED PAIN, HI OR SI. PT STILL HAS LOW BP AND BP MEDS BEING HELD. PT WAS ABLE TO GET COMFORTABLE AND SLEEP PART OF THE SHIFT. WILL CONTINUE TO MONITOR.
[2019-08-21 08:02] VITALS: BP 105/52
--- NOTE | 2019-08-21 08:56 | NUR ---
Sw completed chart review and called Annamaria magdaleno and JO ANN and provided an update and phone number. This included verifying that pt is expected to d/c back to [facility] at D/C. Catarina then called and left a VM with their social worker psychiatric - provided phone number and requested a call back to provide any collateral information and to discuss any concerns and expecteations at d/c.
--- NOTE | 2019-08-21 12:30 | NUR ---
APPLIED PRINCESS ASHER ON PT. PT UNDERSTOOD THAT THEY WERE TO HELP WITH BP AND CIRCULATION. PT IN W/C. HAS NOT TRIED TO GET OUT OF CHAIR IN DINING ROOM.
--- NOTE | 2019-08-21 13:00 | NUR ---
PT TAKING ABBI HOSE OFF AT THIS TIME. ENCOURAGING PT TO LEAVE ABBI HOSE ON.
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
--- NOTE | 2019-08-21 15:29 | EKG ---
[facility] Ulisses Robles [facility] [place] [address] ELECTROCARDIOGRAM REPORT Name: BABS RAO Room #: [facility] ADM IN M.R.#: [id number] Admission: 08/18/19 Attend Phys: Leonor Eduardo MD Discharge: Date of : 40 Report #: [id number] THIS REPORT FOR: cc: Rodney Gillette MD, Steven E. MD Lundgren,Orestes Cullen MD [facility] ~ THIS REPORT FOR: //name// [facility] Test Date: 2019-08-20 Test Time: 08:31:35 Pat Name: BABS RAO Department: Room: [facility] Gender: M Exotic Dancer: Star DENNISON : 1940 Requested By: Leonor Eduardo Order Number: [id number] MD: Orestes Spencer Measurements Intervals [place] Rate: 105 P: TN: QRS: 57 QRSD: 88 T: 26 QT: 339 QTc: 449 Interpretive Statements Atrial fibrillation Otherwise no significant abnormality Compared to ECG 08/15/2018 17:09:33 Sinus rhythm no longer present Electronically Signed On 08-21-2019 15:28:10 CDT by Orestes Spencer [email or web address] <ELECTRONICALLY SIGNED> By: Orestes Spencer MD, [facility] 08/21/19 1528 Orestes Spencer MD, [facility] /EPI
[2019-08-21 18:45] VITALS: BP 116/53
--- NOTE | 2019-08-22 05:51 | NUR ---
ASSUMED CARE OF PT AT 1900HRS. FALL PRECAUTION IN PLACE. PT WAS NOT COOPERATIVE THIS SHIFT AND WAS IMPULSIVE. PT REFUSED TO TAKE PRN HALDOL ON FIRST ATTEMPT. PT LATER TOOK PO MEDS WHOLE WITHOUT ANY ISSUES. PT SPENT MOST OF THE SHIFT IN A RECLINER. PT WAS ABLE TO SLEEP PART OF THE SHIFT. VSS AND NO S/S OF ACUTE DISTRESS. WILL CONTINUE TO MONITOR.
[2019-08-22 07:48] VITALS: BP 99/52
--- NOTE | 2019-08-22 12:38 | NUR ---
PT CALM AND COOPERATIVE. PATIENT ABLE TO STATE HE FEELS "OK", BUT DOESNT SAY ANYTHING WHEN ASKED IF HES HAVING SI/HI. PATIENT SPEAKS WITH A VERY LOW TONE. PATIENT REMAINS IN CHAIR WITH LAP AXEL AND IS TOLERATING IN ACTIVITY ROOM. VITAL SIGNS WNL, NO DISTRESS, WILL CONTINUE TO MONITOR.
--- NOTE | 2019-08-22 14:36 | NUR ---
MIKAYLA faxed updates to [facility]
[2019-08-22 19:15] VITALS: BP 143/69
--- NOTE | 2019-08-22 22:31 | NUR ---
Pt oriented to person. Confused. Pt was a little uncooperative during assessment. Pt refused nursing listening to his heart sound, lungs and abd. Otherwise pt answered assessment questions. Pt was sitting in the dayroom with a lap bret in place at the time of assessment. Pt had HS snacks. Pt took meds whole. Pt now in bed. Will continue to monitor.
[2019-08-23 08:00] VITALS: BP 118/61
[2019-08-23 08:50] VITALS: BP 118/61
--- NOTE | 2019-08-23 11:39 | NUR ---
MIKAYLA spoke with pt's spouse Torsten and reported that pt would d/c Wednesday back to [facility]. MIKAYLA als answered her questions about the medicaiton dosage changes that were made. She is satisfied with this outcome. MIKAYLA then called [facility] and reported the d/c plan for Wednesday and will call back tomorrow for a greens picker time.
--- NOTE | 2019-08-23 17:28 | NUR ---
ASSUMED PT CARE REPORT RECEIVED FROM NURSE PT IS AOX1 CONFUSED AND FORGETFUL. ON RA. VSS. PT FOUND SEATED IN WHEELCHAIR WITH A LAP BODY ON. PT SAFETY BEING MONITORED ALL SHIFT LONG. AFTER DINER TIME PT REMOVED HIS WON LAP BODY. THEN PT WITNESSED GETTING UP FROM WHEELCHAIR BY TWO STAFF. TWO STAFF MEMBERS WERE IN THE ACTIVITY ROOM AREA CLEANING THE DINING TABLE. THIS NURSE AND ANOTHER TECH RUN TO ATTEMPT TO KEEP PT FROM FALLING. THE PT WAS WITNESSED FALLING AT 1725 IN ACTIVITY/DINING ROOM. PT WAS PLACED BACK IN WHEELCHAIR WITH LAP BODY IN PLACE. DR SHANNON NOTIFIED
[2019-08-23 17:30] VITALS: BP 130/64
--- NOTE | 2019-08-23 17:33 | NUR ---
PT FREE FROM PAIN PER NURSE ASSESSMENT. PT FELL ON HIS LEFT BUTTOCK.
--- NOTE | 2019-08-23 17:38 | NUR ---
PT HAS A 1:1 SITTER ORDERED BECAUSE OF HIS LAP BODY. THIS NURSE HAS MENTIONED THE ORDER TO DIRECT CARE SPECIALIST WHEN IT WAS IN [facility]. HOUSE SUP NOTIFIED NURSE TO TALK TO ONE OF THE CUTLERY GRINDER S ON FLOOR TO SIT WITH THE PATIENT. THIS NURSE HAD NOTIFIED ONE OF THE AVAILABLE TECH TO DO SO WHOM DID NOT FOLLOWUP THE ORDER STATING THAT THERE ARE NOT ENOUGH STAFFING. THEN THE PT WAS BEING KEPT AN EYE ON UNTIL 1700 AFTER DINER WHEN HE REMOVED HIS LAP BODY AND ATTEMPTED TO GET UP FORM HIS WHEELCHAIR AND FELL.
[2019-08-23 18:30] VITALS: BP 122/60
--- NOTE | 2019-08-23 18:54 | NUR ---
incident website not working. house sup notified. occurence report paper was filled out and given to diane naqvi for follow up with risk management. post fall huddle form filled out and faxed to [facility]. physician and house sup and charge nurse aware of fall. night nurse notified about the fall. pt was confused before the fall and remains confused. no injury. fall was witnessed. pt now in wheelchair with the lap body in place
[2019-08-23 19:17] VITALS: BP 123/66
[2019-08-23 21:00] VITALS: BP 123/66
--- NOTE | 2019-08-23 23:24 | NUR ---
Assumed care of patient this pm shift. Patient sitting at a table in the mileu. Patient appears to be in good spirits, smiling. Patient is calm and cooperative. Patient states that he has mild pain in both elbows. Patient was given tylenol. Patient denies hi/si. Patient takes medications whole. Patient ambulates via wheelchair. Patients assessment shows clear breath sounds, active bowel sounds, and s1 s2 heard with auscultation. We will continue to monitor patient.
[2019-08-24 09:22] VITALS: BP 113/69
--- NOTE | 2019-08-24 12:07 | NUR ---
MIKAYLA spoke with [facility] and they will set up transortation for 11 am on 08/24. This was reported to nursing staff and pt's spouse Annamaria.
--- NOTE | 2019-08-24 13:16 | NUR ---
Sitting most of morning in WC without s/o distress. Alert to name only. Denies SI/HI. Some confused speech. Able to pull himself around unit in WC, lap bret in place. Quiet, calm and cooperative. At one point he took arm rests off WC and placed them on the table. Breath sounds clear t/o, bilaterally equal. Reg HR auscultated. Color pink with brisk capillary refill and palpable peripheral pulses. Incontinent of large amt yellow urine per brief. Active bowel sounds over soft, flat abdomen. 1320 Sitting in day room with peers, watching TV without s/o distress.
[2019-08-24 19:25] VITALS: BP 106/68
--- NOTE | 2019-08-24 22:33 | NUR ---
PATIENT ASSESSED AND IS ALERT X 1. SKIN WARM AND DRY. RESP EVEN AND UNLABORED. SITTING UP IN WHEEL CHAIR BEING COOPERATIVE WITH MEDS . LUNGS CTA. NO SI/HI. AT PRESENT. PLACED TO BED AND THEN KEPT TRYING TO GET OUT OF NBED SO STAFF PLACED PATIENT PLACED BACK IN W/C AND HE IS VERY AGAITATED TO STAFF AND RN. KEEPING TRYING TO GET OUT OF W/C LAP AXEL ON BUT KEPT TRYING TO GET OUT OF IT. PATIENT VERY AGITATED AT PRESENT. REFUSES TO LISTEN TO STAFF. NO EDEMA NOTED TO LOWER EXTRMITIES. CALLED AND RECEIVED ONE TIME ORDER FOR HALDOL IM. IM HALDOL GIVEN IN RIGHT DELTOID. HAD TO HOLD DOWN AND GOT A HOLD OF RN SLEEVE HE WOULD NOT LET GO OF RN SLEEVE. FINALLY GOT HANDS OF OF RN AND PLACED IN DINNING ROOM, THEN HE KEPT TRYING TO SIT HIS W/C ON ITS SIDE. AWAITING FOR MEDICATION TO TAKE EFFECT. WILL MONITOR PATIENT BEHAVIOR AND COMBATIVENESS TO STAFF. CONT TO MONITOR.
--- NOTE | 2019-08-24 23:47 | NUR ---
Patient is still awake but is calm now if you leave him alone. Still in w/c rolling himself in dinning room. Will continue to monitor his behavior. less agitated.
--- NOTE | 2019-08-25 00:09 | NUR ---
PATIENT REMAINS QUITE AND STILL NOT GETTING SLEEPY. REFUSES TO GO TO BED. WILL MONITOR BEHAVIOR STILL.
--- NOTE | 2019-08-25 02:44 | NUR ---
PATIENT STILL REFUSES TO GO TO BED. ROAMING THE HALLS. TRIED TO GIVE HIM PO HALDOL BUT REFUSES TO TAKE PO.CONT TO MONITOR. SLEEPS OFF AND ON IN W/C.
--- NOTE | 2019-08-25 04:27 | NUR ---
PATIENT STILL SITTING UP IN W/C. DOES GET AGITATED IF STAFF TRIES TO DO ANY CARES FOR HIM. DID SLEEP OFF AND ON IN CHAIR. CONT PLAN OF CARE.
--- NOTE | 2019-08-25 04:52 | NUR ---
PATIENT DECIDED TO GO TO BED NOW. OUT OF CHAIR AND HAD A SMALL BM. LAID DOWN, WAS COOPERATIVE IN CARE TO GO TO BED. SLEEPING AFTER 10 GLORIA IN BED. BED ALARM ON.
[2019-08-25 07:30] VITALS: BP 111/63
--- NOTE | 2019-08-25 08:43 | NUR ---
SW made packet and left it on the chart. MIKAYLA sent d/c orders and summary to [facility] and left confirmation of fax with the poacket on the chart. SW completed some of the d/c summary. Reported to nursing.
[2019-08-25] MEDS ORDERED: PROTONIX40 M1 PO (09:35)
[2019-08-25] MEDS ORDERED: HALOPERIDOL 5 MG5 MG PO (09:35)
[2019-08-25] MEDS ORDERED: MIRALAX17 GM PO (09:35)
[2019-08-25] MEDS ORDERED: VITAMIN D (09:35)
[2019-08-25] MEDS ORDERED: ALPHAGAN P5 ML OPHTHALMIC (09:35)
[2019-08-25] MEDS ORDERED: DEPAKOTE ER250 MG PO (09:35)
[2019-08-25] MEDS ORDERED: HALDOL 0.5 MG0.5 MG PO (10:46)
--- NOTE | 2019-08-25 11:22 | NUR ---
In bed without s/o distress. Alert and orientated to self only. Denies SI/HI. Calm and cooperative, compliant with meds. Some garbled speech. Breath sounds clear t/o, bilaterally equal. Reg HR auscultated. Color pink with brisk capillary refill and palpable peripheral pulses. Scant amt nonpitting edema in lower extremities, ABBI hose applied. Incontinent of urine and small, formed, brown stool. Active bowel sounds over soft, flat abdomen. Able to stand and assisted with transfer to , jesus queen applied. 1100 Rhea Jay notified of transfer to [facility] [place]. Verbalizes agreement of plan, asked what new medications he is on. Report called to [facility] of [facility]. Van transport here, placed in with belongings and discharged. No s/o distress.
== END 2019-08-25 11:30 | DRG 884 ==
LOC: ER 19:50 → SBH 22:34 → EROBS 22:34 → SBH 23:35
PROVIDERS: Emergency Medicine Emergency Medical Services; Hospitalist; ADMIT Psychiatry & Neurology Psychiatry
DX: F03.91 Unspecified dementia, unspecified severity, with behavioral disturbance (principal); I48.20 Chronic atrial fibrillation, unspecified; I10 Essential (primary) hypertension; E03.9 Hypothyroidism, unspecified; J44.9 Chronic obstructive pulmonary disease, unspecified
CPT/HCPCS: 10880

== ENCOUNTER 2019-11-29 15:15 | Emergency (ER) | payer OTHER ==
[~2019-11-29] VITALS: Ht 177.8 cm; Wt 68.0 kg
[~2019-11-29 15:15] MED LIST changes: +CARDIZEM SR 60M60 MG PO; +DEPAKOTE ER250 MG PO; +DIVALPROEX SOD500 MG PO; +DORYX MPC120 MG PO; +DOXYCYCLINE HY100 M3 PO; +HALDOL 0.5 MG0.5 MG PO; +HALOPERIDOL20 MG PO; +MUCUS ER600 M1 PO; +MUCUS RELIEF600 M1 PO; +MULTI-BETIC TA1 EACH PO; +OMEGA 3-6-9 11200 M1 PO; +OMEGA-3 FISH1200 MG PO; +PROBIOTIC1 EAC7 PO; +VITAMIN D
[2019-11-29 17:31] LABS: ABSOLUTE NEUTROPHILS 6.4 thou/uL (1.4-8.2); BASOPHILS 0.5 % (0.0-2.0); HEMATOCRIT 46.9 % (42.0-52.0); HEMOGLOBIN 15.4 gm/dL (14.0-18.0); LYMPHOCYTES 14.2 % (24.0-44.0); MCH 29.8 pg (26.0-34.0); MCHC 32.9 g/dL (28.0-37.0); MCV 90.6 fL (80.0-100.0); MONOCYTES 11.3 % (1.0-8.0); PLATELET COUNT 195 thou/uL (150-400); RBC 5.18 mil/uL (4.50-6.00); RDW 15.4 % (10.5-14.5); WBC 8.7 thou/uL (4.0-11.0)
[2019-11-29 17:33] LABS: URINE BILIRUBIN NEGATIVE (Negative); URINE BLOOD 2+ (Negative); URINE CLARITY CLEAR; URINE COLOR YELLOW; URINE GLUCOSE-RANDOM* NEGATIVE (Negative); URINE KETONES TRACE (Negative); URINE LEUKOCYTES-REFLEX NEGATIVE (Negative); URINE NITRITE-REFLEX NEGATIVE (Negative); URINE PROTEIN (DIPSTICK) 1+ (Negative); URINE SPECIFIC GRAVITY >= 1.030 (1.005-1.035); URINE UROBILINOGEN 0.2 E.U./dl (0.2-1.0)
[2019-11-29 17:34] LABS: ANION GAP 8 mmol/L (7-16); BUN 23 mg/dL (7-18); CALCIUM 8.8 mg/dL (8.5-10.1); CHLORIDE 103 mmol/L (98-107); CO2 28 mmol/L (21-32); CREATININE 1.2 mg/dL (0.7-1.3); GLUCOSE 105 mg/dL (74-106); POTASSIUM 3.9 mmol/L (3.5-5.1); SODIUM 139 mmol/L (136-145)
[2019-11-29 17:43] LABS: TROPONIN-I <0.06 ng/mL (<0.06)
[2019-11-29 17:50] LABS: BACTERIA-REFLEX >30 Many /HPF (None Seen); URINE WBC-REFLEX 0-5 Rare /HPF (0-5)
[2019-11-29 17:51] LABS: CASTS None Seen /LPF (None Seen); CRYSTALS None Seen /LPF (None Seen); SQUAMOUS None Seen /LPF (0-3); URINE RBC 3-10 Few /HPF (0-2)
[2019-11-29 22:43] VITALS: BP 149/74
--- NOTE | 2019-11-30 07:39 | EKG ---
[facility] [place] [address] ELECTROCARDIOGRAM REPORT Name: BABS RAO Room [facility] [id number] Admission: 11/29/19 Attend Phys: Discharge: 11/29/19 Date of : 40 Report #: [id number] THIS REPORT FOR: cc: Dave Gutiérrez James D. DO Lundgren, Craig H. MD [facility] THIS REPORT FOR: //name// [facility] ED Test Date: 2019-11-29 Test Time: 17:28:35 Pat Name: BABS RAO Department: Room: Gender: Hot Header Operator: [facility] : 1940 Requested By: Mario Schafer Order Number: [id number] MD: Orestes Spencer Measurements Intervals [place] Rate: 83 P: 69 WI: 133 QRS: 57 QRSD: 83 T: 26 QT: 373 QTc: 439 Interpretive Statements Sinus rhythm Normal tracing Compared to ECG 08/20/2019 08:31:35 Atrial fibrillation no longer present Electronically Signed On 11-30-2019 7:39:16 CDT by Orestes Spencer [email or web address] <ELECTRONICALLY SIGNED> By: Orestes Spencer MD, FACC 11/30/19 0739 1728 1728 Orestes Spencer MD, [facility] /EPI
== END 2019-11-29 22:48 ==
LOC: ER 15:15
PROVIDERS: Emergency Medicine
DX: S01.112A Laceration without foreign body of left eyelid and periocular area, initial encounter (principal); F03.90 Unspecified dementia, unspecified severity, without behavioral disturbance, psychotic disturbance, mood disturbance, and anxiety; I10 Essential (primary) hypertension; M79.672 Pain in left foot; M25.512 Pain in left shoulder; Z79.899 Other long term (current) drug therapy; Z79.82 Long term (current) use of aspirin; Z91.013 Allergy to seafood; W19.XXXA Unspecified fall, initial encounter; Y93.89 Activity, other specified; Y92.89 Other specified places as the place of occurrence of the external cause; Y99.8 Other external cause status